=== PATIENT | male | born 1940 | race Caucasian/White ===

== ENCOUNTER → 2016-03-18 | Day surgery (SDC) | payer MEDICARE, OTHER ==
[~2016-03-18] MED LIST: ACETAMINOPHEN 1000 MG/100 ML VIAL IV ONE; AMBI10TA PO; BUPIVACAINE/EPINEPHRINE 0.25% PF 30 ML VIAL ONE; CALC500 PO; CEPH500 PO; ECOT81TA2 PO; FOLI1TAB PO; KETOROLAC TROMETHAMINE 30 MG/ML (IVP) VIAL IV PUSH ONE; LACTATED RINGER'S 1000 ML INJ 1,000 ML ONE; LIDOCAINE 1%/EPINEPHrine 1:100,000 SOLN 20 ML VIAL ONE; LISI10TA PO; MIDAZOLAM HCL 2 MG/2 ML VIAL ONE; ONDANSETRON HCL 4 MG/2 ML VIAL IV PUSH ONE; PRAV40TA PO; PROPOFOL 100 MG/10 ML INJ IV ONE; SODIUM CHLOR 0.9% 250 ML BAG IV ONE; SODIUM CHLOR 0.9% 250 ML INJ 250 ML IV ONE; TAB-TAB PO; TAMS0.4C67 PO; VANCOMYCIN HCL 1000 MG VIAL ONE; ceFAZolin INJ 1,000 MG VIAL ONE
--- NOTE | 2016-03-24 14:35 | MP ---
cc: MAYNOR GRECO MD, MICHAEL A. M.D. VAN DIEPEN, PATRICIA DATE OF PROCEDURE 03/18/2016 PROCEDURE Reduction and repair of incarcerated left inguinal hernia with mesh. PREOPERATIVE DIAGNOSIS Incarcerated, symptomatic left inguinal hernia. POSTOPERATIVE DIAGNOSIS Incarcerated, symptomatic left inguinal hernia. ANESTHESIA LMA. SURGEON MD Alcides ESTIMATED BLOOD LOSS Less than 20 mL. FLUIDS 850 mL crystalloid. THREAD SPINNER ADRIANA Traore NOTE The EPIC MANAGER was present from the beginning to the end of the case assisting in all portions of the procedure. It was necessary to have this individual in the room to assist in the above surgical procedure. The EPIC MANAGER's presence was necessary for appropriate retraction, dissection, visualization, and resection of important anatomical structures during the procedure. She was assisting through the entirety of the operation. PROCEDURE IN DETAIL The patient was seen in the holding area and the left side confirmed with the patient and marked by the undersigned. He was taken to the operating room and placed on the operating table in the supine position. After laryngeal mask anesthesia was instituted, the left groin was shaved, prepped and draped. Time-out was taken confirming the correct patient site and procedure to be performed. The left groin was infiltrated with local anesthetic and a slightly oblique incision was made directly over the mass. The hernia could not be reduced even after laryngeal mask anesthesia was instituted. Dissection was carried down to the external oblique fascia where further subfascial injections were made with local anesthetic. When this had been completed, the fascia was opened and dissection was carried back to the internal ring. The underlying structures were swept free from the external oblique fascia with care taken to identify the iliohypogastric nerve which was kept free from the operative field and left within its eagle coverings. The cord structures were brought up on a Dayne drain and the patient was noted to have a lipoma of the spermatic cord as well as significant intraabdominal preperitoneal fatty material within the cord structures. The fatty material as well as a small loop of bowel was able to be reduced into the abdominal cavity; the lipoma of the spermatic cord was easily dissected off and submitted to allow for closing down of the cord structures to minimize risk of recurrence. When this was completed, a 3 x 6-inch piece of Atrium mesh was brought up and transfixed to the pubic tubercle with a 2-0 Prolene suture. This was then run along the shelving edge of the inguinal ligament to complete the lateral edge of the repair. The mesh was then slit longitudinally and trimmed to size to fit the defect. The mesh was transfixed at multiple points with interrupted 2-0 Prolene suture. Care was taken to keep all sutures well away from the iliohypogastric nerve. With hemostasis assured, 30 mL of 0.25% Marcaine with epinephrine was injected into the transversalis fascia and subcutaneous tissues. The external oblique fascia was closed with a running 3-0 Vicryl suture. Care was taken to exclude the underlying tissues from the closure. The subcutaneous tissue was closed with interrupted 3-0 Vicryl suture and the skin closed with 5-0 PDS in a running subcuticular fashion. The wound was dressed with Telfa and Tegaderm and the patient was taken back to the recovery room in stable condition. Sponge, needle and instrument counts were reported to be correct. MD AYLEEN Khoury/RIZWANA /12:43 PM /2:26 PM
== END | disposition home or self-care (01) ==
LOC: ESDC 10:17
PROVIDERS: ATTEND Surgery Trauma Surgery
DX: K40.30 Unilateral inguinal hernia, with obstruction, without gangrene, not specified as recurrent (principal); D17.6 Benign lipomatous neoplasm of spermatic cord
CPT/HCPCS: 00830; 49507; 55520; 88304; C1781; J0131; J0690; J1885; J2250; J2405; J3010; J3370; J7050; J7120

== ENCOUNTER → 2017-08-09 | Outpatient (CLI) | payer MEDICARE, OTHER ==
--- NOTE | 2017-08-04 13:40 | MH ---
cc: Epi Solorzano MD DATE OF ADMISSION: 08/09/2017 ADMISSION DIAGNOSIS: Cataract, left eye. HISTORY OF PRESENT ILLNESS: This 77-year-old white male is coming through [facility] for the purpose of a lens extraction of the left eye with intraocular lens implant under local anesthesia. He has noticed decreasing visual acuity interfering with his daily activities and elected to have the above procedure. His best corrected visual acuity in room light is 20/50 in the right eye and 20/50 -1 in the left. PAST MEDICAL HISTORY: The patient has a history of hypertension, kidney stones, a leaky heart valve and cholesterol problems. PAST SURGICAL HISTORY: Kidney stones, left rotator cuff and back surgery in the past. DAILY MEDICATIONS: Include lisinopril, Pravachol, folic acid, Ambien, tramadol, potassium citrate, Ecotrin, multivitamins, amlodipine and hydrochlorothiazide. ALLERGIES: HE HAS NO KNOWN ALLERGIES. SOCIAL HISTORY: He is a 1/2-pack per day smoker for 30 years and drinks alcohol. FAMILY HISTORY: Noncontributory. REVIEW OF SYSTEMS: HEAD: Patient denies severe headaches, dizziness or recent head injury. EARS: Patient denies hearing loss, ear pain, discharge or ringing in the ears. NOSE: Patient denies nasal discharge, obstruction or frequent colds. MOUTH AND THROAT: Patient denies soreness of the mouth or tongue, bleeding gums, trouble swallowing, changes in voice or sore throat. NECK: Patient denies neck pain or swelling, limitation of neck movement or neck injury. CARDIOPULMONARY SYSTEM: Patient denies shortness of breath, orthopnea, chronic cough, sputum production, hemoptysis, chest pain, wheezing, palpitations or light-headedness. GI SYSTEM: Patient denies poor appetite, nausea, vomiting, abdominal pain, ulcers, hemorrhoids or change in bowel habits. SYSTEM: The patient denies urinary frequency, dysuria, change in urine color. NERVOUS SYSTEM: Patient denies convulsions, vertigo, stroke, numbness or weakness. PHYSICAL EXAMINATION: VITAL SIGNS: Blood pressure in our office was 146/88. This varies depending on which office he is and his state of mind. Pulse 72, respirations 16. HEENT: Head is normocephalic, atraumatic. Nose: Without rhinorrhea. Throat: Clear. NECK: Supple. HEART: Regular rhythm with occasional premature beat. ABDOMEN: Without tenderness. EXTREMITIES: Without edema. NEUROLOGIC: Within normal limits. MENTAL STATUS: Within normal limits. EYE EXAM: The patient's best corrected visual acuity in room light is 20/50 in the right eye and 20/50 -1 in the left. Visual abdul are full to confrontation testing. Extraocular muscle exam reveals full versions with orthophoric at distance and near. Pupils are 3 mm, equal, round, and reactive to light, without afferent defect. Anterior segment examination reveals an old foreign body scar on the cornea in the right eye greater than the left. There are nuclear sclerotic and anterior and posterior cortical cataract changes bilaterally. Intraocular pressure is 17 in the right eye and 19 in the left eye applanation tonometry. Dilated fundus exam revealed sharp disc with cup-to-disc ratio of 0.45 in the right eye and 0.25 in the left. The macula appears to be within normal limits. A posterior vitreous detachment is present bilaterally. 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 An atrophic pigmented area was noted superotemporally in the left eye. IMPRESSION: 1. Bilateral cataracts. 2. Posterior vitreous detachment both eyes. 3. Glaucoma suspect, low risk, both eyes. PLAN: Lens extraction of the left eye with intraocular lens implant under local anesthesia. The patient has been cleared medically. His blood pressure does vary and he was told, if the blood pressure is not reasonable, his case may have to be postponed. He has been counseled as to the risks, benefits and alternatives and elected to proceed. I feel that cataract surgery will improve the quality of life and activities of daily living in this patient. MD PETER Gonzalez/OUSMANE , 01:12 PM , 01:39 PM
[~2017-08-09] VITALS: Ht 172.7 cm; Wt 66.0 kg
[~2017-08-09] MED LIST changes: -ACETAMINOPHEN 1000 MG/100 ML VIAL IV ONE; +ACETYLCHOLINE CHL OPHT SOLN 1:100 2 ML VIAL ONE; +ASPI-147 PO; -BUPIVACAINE/EPINEPHRINE 0.25% PF 30 ML VIAL ONE; +CHLORHEXIDINE GLUCONATE 2 % 1 PACK (2 CLOTHS) TOPICAL PRN; +EPINEPHrine HCL PF/SF (1:1000) 1 MG/ML AMP I-OCULAR ONE; +HYALURONIDASE/LIDOCAINE/BUPIVACAINE 5 ML SYR LEFT EYE ONE; -KETOROLAC TROMETHAMINE 30 MG/ML (IVP) VIAL IV PUSH ONE; -LACTATED RINGER'S 1000 ML INJ 1,000 ML ONE; +LACTATED RINGER'S 1000 ML IV PRN; -LIDOCAINE 1%/EPINEPHrine 1:100,000 SOLN 20 ML VIAL ONE; +METOPROLOL TARTRATE 25 MG TAB PO PRN; -MIDAZOLAM HCL 2 MG/2 ML VIAL ONE; +MULTTAB67 PO; -ONDANSETRON HCL 4 MG/2 ML VIAL IV PUSH ONE; +PILOCARPINE HCL 2% OPHT SOLN 15 ML BTL ONE; +POVIDONE IODINE 5% (ANTISEPSIS KIT) 4 APPLICATIONS EACH NARE PRN; +PROPARACAINE HCL 0.5% OPHT SOLN 15 ML BTL LEFT EYE ONE; -PROPOFOL 100 MG/10 ML INJ IV ONE; +PROPOFOL 200 MG/20 ML AMP ONE; -SODIUM CHLOR 0.9% 250 ML BAG IV ONE; -SODIUM CHLOR 0.9% 250 ML INJ 250 ML IV ONE; +SODIUM CHLORID 0.9% 500 ML IV PRN; +TAMS5CAP PO; +TOBRAMYCIN/DEXAMETHASONE OPTH OINT 3.5 GM TUBE ONE; -VANCOMYCIN HCL 1000 MG VIAL ONE; +VISCOAT OPHT IRRIG SOLN 0.75 ML SYRINGE ONE; -ceFAZolin INJ 1,000 MG VIAL ONE
[2017-08-09 07:45] VITALS: PULSE 67
[2017-08-09] MEDS: TROPICAMIDE 1% OPHT SOLN 15 ML BTL LEFT EYE SCH ×4 (07:45→07:54)
[2017-08-09] MEDS: DICLOFENAC SOD 0.1% OPHT SOLN 2.5 ML BTL LEFT EYE SCH ×4 (07:45→07:54)
[2017-08-09] MEDS: PHENYLEPHRINE HCL 2.5% OPTH SOLN 2 ML BTL LEFT EYE SCH ×4 (07:45→07:54)
[2017-08-09] MEDS: CYCLOPENTOLATE HCL 1% OPHT SOLN 2 ML BTL LEFT EYE SCH ×4 (07:45→07:54)
[2017-08-09] MEDS: GATIFLOXACIN 0.5% OPHT SOLN 2.5 ML BTL LEFT EYE SCH ×4 (07:45→07:54)
[2017-08-09 08:10] VITALS: PULSE 74
--- NOTE | 2017-08-09 10:20 | MP ---
cc: Epi Solorzano MD DATE OF OPERATION: 08/09/2017 DATE OF OPERATION: 08/09/2017. T PREOPERATIVE DIAGNOSIS: Cataract left eye. POSTOPERATIVE DIAGNOSIS: Cataract left eye. OPERATION: Extracapsular cataract extraction with posterior chamber intraocular lens implant by phacoemulsification, left eye. SURGEON: Epi Solorzano M.D. ANESTHESIA: Local. COMPLICATIONS: None. INDICATIONS: See history and physical previously dictated. OPERATIVE PROCEDURE: The patient had adequate retrobulbar and eyelid blocks administered in the holding area and was brought to the operating room. The left eye was prepped and draped in the usual sterile ophthalmic manner. A lid speculum was inserted in the left eye. A 4-0 silk bridle suture was placed through the conjunctiva near the superior rectus muscle and it was tagged to the drape. A fornix-based conjunctival flap was prepared spanning approximately 5 mm in width. Hemostasis was obtained with wet-field cautery. A 3.5 mm groove was made 1 mm from the limbus and dissected up to the limbus in the form of a scleral pocket incision. A stab incision was then made at the 2 o'clock position. Viscoelastic was injected into the anterior chamber. The anterior chamber was entered with a 2.75 mm keratome through the scleral pocket incision. A 360 degree continuous curvilinear capsulorrhexis was then performed. Hydrodissection was utilized to divide the nucleus into inner and outer components and to separate the cortex from the capsule. Phacoemulsification was then utilized to remove the nucleus. The outer nuclear layer was removed with irrigation and aspiration and short bursts of ultrasound as necessary. The cortex was removed with the irrigation/aspiration handpiece. The posterior capsule was polished with the capsule polisher. Viscoelastic was injected into the capsular bag. The intraocular lens was inspected and found to be in good condition. The lens utilized was an Juan David, model number [id number] with a power of +17.5 Diopters. The lens was inserted into the capsular bag. The viscoelastic in the anterior chamber was then removed with the irrigation-aspiration handpiece. Viscoelastic was also removed from beneath the intraocular lens. The anterior chamber was filled with Miochol-E through the stab incision and pressurized. The wound was checked for leaks at this pressure and normalized pressure and there were none. The 4-0 bridle suture was removed. The conjunctival flap was brought down over the wound and secured with cautery. Pilocarpine 2% eye drops were instilled topically. The lid speculum was removed. TobraDex ophthalmic ointment was applied. The eye was double patched and shielded. The patient tolerated the procedure well and left the Operating Room in satisfactory condition. MD PETER Gonzalez/OUSMANE , 10:06 AM , 10:19 AM
[2017-08-09 10:25] VITALS: BP 158/74; PULSE 56; RESP 16; TEMP 98.2; O2SAT 100
== END ==
LOC: PHSDC 06:53
PROVIDERS: ATTEND Ophthalmology
DX: H25.812 Combined forms of age-related cataract, left eye (principal); H43.813 Vitreous degeneration, bilateral; H40.003 Preglaucoma, unspecified, bilateral; I10 Essential (primary) hypertension; I38 Endocarditis, valve unspecified; F17.210 Nicotine dependence, cigarettes, uncomplicated; Z87.442 Personal history of urinary calculi
CPT/HCPCS: 00142; 66984; J0171; J7040; V2632

== ENCOUNTER 2018-04-22 20:57 | Inpatient (IN) ==
[2018-04-22] MEDS ORDERED: Sod Chloride 0.9% Inj 1,000 ML IV.SIG SCH (21:30)
--- NOTE | 2018-04-22 21:34 | ED ---
HPI General Chief complaint: Fall Stated complaint: Fall Time Seen by Provider: 04/22/18 21:10 Source: patient, family (Brother) and EMS Mode of arrival: EMS Limitations: no limitations History of Present Illness HPI narrative: 77-year-old male here by ambulance from home for evaluation of left shoulder pain, left elbow pain, head injury after an unwitnessed fall. The patient does not recall how he fell. He does admit to drinking alcohol this evening and his brother who is here with him believes he may have drank a little bit too much. Patient drinks 2 scotch drinks daily. He was at home with his this evening when the incident occurred. On arrival the patient is tearful and apologetic. Initially he denies any symptoms or injury, however while talking to him he complains that his left shoulder and left elbow do hurt and are worse with movements and palpation. He has ecchymosis to his left eyelid as well as a superficial abrasion superior and lateral to the left eyelid without active bleeding. He denies head or neck pain. No back pain. No pain in any other joint or extremity. No abdominal pain. No chest pain or dyspnea. He reports history of mitral regurgitation, however denies history of CAD or any other significant cardiac disease. No history of syncopal episodes. Related Data Home Medications Medication Instructions Recorded Confirmed multivitamin [Multiple Vitamins] 1 tab PO QAM 08/25/17 04/22/18 amlodipine 5 mg PO BID 04/22/18 04/22/18 aspirin [Ecotrin] 325 mg PO DAILY 04/22/18 04/22/18 folic acid 1 mg PO DAILY 04/22/18 04/22/18 hydrochlorothiazide 12.5 mg PO DAILY 04/22/18 04/22/18 lisinopril-hydrochlorothiazide 1 tab PO BID 04/22/18 04/22/18 potassium citrate 10 meq PO DAILY 04/22/18 04/22/18 pravastatin [Pravachol] 40 mg PO DAILY 04/22/18 04/22/18 Allergies Allergy/AdvReac Type Severity Reaction Status Date / Time No Known Allergies Allergy Verified 04/22/18 21:34 Review of Systems ROS: all other systems reviewed are negative [facility] Social History Social History Substance History: No History of Abuse Second Hand Smoke Exposure: Yes Smoking Status: Never smoker How Often Do You Have a Drink Containing Alcohol: 2 to 3 times a week Recent Travel in [facility] within the Last 8 Weeks: No Recent Out of Country Travel within the Last 8 Weeks: No Exam Narrative Exam Narrative: GENERAL: Well-developed, well-nourished, awake, pleasant, cooperative, appears intoxicated, no apparent distress. SKIN: Focused skin assessment warm/dry. Left periorbital ecchymosis with superficial abrasion/skin tear to left forehead. HEAD: Skin exam as above. Normocephalic. No craniofacial step-off. EYES: Pupils equal and round. No scleral icterus. No injection or drainage. ENT: No nasal bleeding or discharge. Mucous membranes pink and moist. NECK: Trachea midline. No JVD. No midline vertebral step-off or tenderness. CARDIOVASCULAR: Regular rate and rhythm. Distal pulses brisk and equal bilaterally. RESPIRATORY: No accessory muscle use. Clear to auscultation. Breath sounds equal bilaterally. GASTROINTESTINAL: Abdomen soft, non-tender, nondistended. MUSCULOSKELETAL: Limited range of motion in left shoulder and left elbow secondary to perceived pain. There is no obvious deformity. There is mild diffuse tenderness to the left shoulder, left humerus, and left elbow. There is normal range of passive motion at all of these joints, and the left upper extremity is neurovascularly intact with all compartments supple. The rest of his joints and extremities are without deformity, without tenderness, with normal range of motion. NEUROLOGICAL: Awake and alert. No obvious cranial nerve deficits. Motor grossly within normal limits. Normal speech. PSYCHIATRIC: Calm, cooperative, appears intoxicated. Course Initial Documented Vital Signs Temperature 98.4 F 04/22/18 21:00 Pulse Rate 60 04/22/18 21:00 Respiratory Rate 16 04/22/18 21:00 Blood Pressure 106/60 04/22/18 21:00 Pulse Oximetry 99 04/22/18 21:00 Last Documented Vital Signs Temperature 98.4 F 04/22/18 21:15 Pulse Rate 65 04/22/18 22:32 Respiratory Rate 18 04/22/18 22:32 Blood Pressure 115/73 04/22/18 22:32 Pulse Oximetry 100 04/22/18 22:32 Critical Care Time Critical Care Time: Yes Total Critical Care Time: 40 Attestation: Aggregate critical care time was 40 minutes. Time to perform other separately billable procedures was not included in the critical care time. My time did not include minutes spent treating any other patients simultaneously or on activities that did not directly contribute to the patient's treatment. The services I provided to this patient were to treat and/or prevent clinically significant deterioration that could result in: , permanent disability, worsening clinical condition I provided critical care services requiring my management, as noted below: Chart data review, documentation time, medication orders and management, vital sign assessments/reviewing monitor data, ordering and reviewing lab tests, ordering and interpreting/reviewing x-rays and diagnostic studies, care of the patient and discussion of the patient with the admitting physicians. Medical Decision Making MDM Narrative Medical decision making narrative: Vital signs reviewed. Basic labs reviewed. Alcohol level is 194. Left humerus x-ray shows a left proximal humerus fracture with mild impaction. Left forearm x-ray is negative for fracture or dislocation. CT head: CONCLUSION:1. 6 mm left anterior frontal mid convexity subdural hematoma.2. Fluid in the left maxillary sinus. CT cervical spine: CONCLUSION:1. Anterior fixation at C3-5. Fixation hardware appear intact.2. Stable mild compression deformity of C6 superior endplate.3. 3 mm anterolisthesis of C5 on C6, presumably secondary to degenerative facet arthrosis. Flexion and extension views may be obtained if there is significant concern regarding ligamentous instability at this level.4. No acute fracture.5. Degenerative spondylosis of the cervical spine, as above. The patient and the patient's brother were made aware of all findings. Patient was placed in a left arm sling. The patient is awake and has been for the entire emergency department visit. He does have external signs of left forehead trauma. He has been slightly repetitive with questioning in the emergency department, however his alcohol level is 194. He denies headache. His main complaint if of left shoulder pain. He is on Ecotrin. No other antiplatelets or anticoagulants. 10:55 PM: I discussed the case with on-call neurosurgeon Dr. Crockett. He would like the patient to receive a loading dose of Keppra and to be admitted to the demolition crane operator service at the [facility] and [facility]. He will see the patient in consultation. Case discussed with demolition crane operator Dr. Serrano who will admit the patient to her service to the ICU at the [facility] in [facility]. Medical Screen Exam Complete: Yes Emergency Medical Condition: Yes Differential Diagnosis Differential Diagnosis: Alcohol intoxication, intracranial trauma, cervical spine injury, metabolic abnormality, dysrhythmia, left arm injury Lab Data Result diagrams: 04/22/18 21:20 04/22/18 21:20 Lab Results 04/22/18 04/22/18 04/22/18 Range/Units 21:20 21:20 21:20 CBC w Diff Auto diff final WBC 8.3 (4.0-11.0) th/mm3 RBC 4.13 L (4.50-5.90) mil/mm3 Hgb 14.3 (13.0-17.0) gm/dL Hct 42.8 (39.0-51.0) % MCV 103.7 H (80.0-100.0) fL MCH 34.6 H (27.0-34.0) pg MCHC 33.3 (32.0-36.0) % RDW 11.9 (11.6-17.2) % Plt Count 230 (150-450) th/mm3 MPV 7.7 (7.0-11.0) fL Neut % (Auto) 58.9 (16.0-70.0) % Lymph % (Auto) 32.8 (9.0-44.0) % Morgan % (Auto) 7.2 (0.0-8.0) % Eos % (Auto) 0.6 (0.0-4.0) % Baso % (Auto) 0.5 (0.0-2.0) % Neut # (Auto) 4.9 (1.8-7.7) th/mm3 Lymph # (Auto) 2.7 (1.0-4.8) th/mm3 Morgan # (Auto) 0.6 (0.0-0.9) th/mm3 Eos # (Auto) 0.1 (0.0-0.4) th/mm3 Baso # (Auto) 0.0 (0.0-0.2) th/mm3 WBC Differential . Differential Comment . PT 10.4 (9.8-11.6) sec INR 1.0 Ratio APTT 22.6 L (23.4-31.7) sec Sodium 139 (136-145) meq/L Potassium 3.6 (3.5-5.1) meq/L Chloride 103 (98-107) meq/L Carbon Dioxide 24.1 (21.0-32.0) meq/L Anion Gap 12 (5-15) meq/L BUN 23 H (7-18) mg/dL Creatinine 0.97 (0.60-1.30) mg/dL Estimated GFR 75 L (>89) mL/min Random Glucose 122 H (74-106) mg/dL Calcium 8.8 (8.5-10.1) mg/dL Magnesium 2.2 (1.5-2.5) mg/dL Total Bilirubin 0.5 (0.2-1.0) mg/dL AST 21 (15-37) U/L ALT 24 (12-78) U/L Alkaline Phosphatase 80 (45-117) U/L Total Protein 7.0 (6.4-8.2) g/dL Albumin 3.9 (3.4-5.0) g/dL Lipase 113 (73-393) U/L Serum Alcohol 194 H (0-5) mg/dL Imaging Data Radiologist's impression: Cervical Spine CT 04/22/18 21:16 CONCLUSION: 1. Anterior fixation at C3-5. Fixation hardware appear intact. 2. Stable mild compression deformity of C6 superior endplate. 3. 3 mm anterolisthesis of C5 on C6, presumably secondary to degenerative facet arthrosis. Flexion and extension views may be obtained if there is significant concern regarding ligamentous instability at this level. 4. No acute fracture. 5. Degenerative spondylosis of the cervical spine, as above. Forearm X-Ray 04/22/18 21:16 CONCLUSION: 1. No acute fracture. Head CT 04/22/18 21:16 CONCLUSION: 1. 6 mm left anterior frontal mid convexity subdural hematoma. 2. Fluid in the left maxillary sinus. Humerus X-Ray 04/22/18 21:16 CONCLUSION: Left proximal humeral fracture. Discharge Plan Discharge Disposition Patient Disposition: ED Admit(ED Internal Use Only) Discharge Condition Condition: Fair Discharge Details Diagnosis: Acute subdural hematoma, Closed fracture of left proximal humerus, Alcohol intoxication Physicians Team ED Provider: Fermin Shukla Primary Care Provider: Gabi Mosquera Rxs /Orders / Referrals /Forms Prescriptions: No Action multivitamin [Multiple Vitamins] Tablet 1 tab PO QAM RF: 0 lisinopril-hydrochlorothiazide 20-12.5 mg Tablet 1 tab PO BID RF: 0 pravastatin [Pravachol] 40 mg Tablet 40 mg PO DAILY RF: 0 amlodipine 5 mg Tablet 5 mg PO BID RF: 0 aspirin [Ecotrin] 325 mg Tablet,Delayed Release (Dr/Ec) 325 mg PO DAILY RF: 0 potassium citrate 10 mEq (1,080 mg) Tablet Extended Release 10 meq PO DAILY RF: 0 folic acid 1 mg Tablet 1 mg PO DAILY RF: 0 hydrochlorothiazide 12.5 mg Tablet 12.5 mg PO DAILY RF: 0 Status ED Status: With Doctor
[2018-04-22 21:36] LABS: Baso % (Auto) 0.5 % (0.0-2.0); Eos # (Auto) 0.1 th/mm3 (0.0-0.4); Eos % (Auto) 0.6 % (0.0-4.0); Hematocrit 42.8 % (39.0-51.0); Hemoglobin 14.3 gm/dL (13.0-17.0); Lymph # (Auto) 2.7 th/mm3 (1.0-4.8); Lymph % (Auto) 32.8 % (9.0-44.0); Mean Corpuscular HGB Conc 33.3 % (32.0-36.0); Mean Corpuscular Hemoglobin 34.6 pg (27.0-34.0); Mean Corpuscular Volume 103.7 fL (80.0-100.0); Mean Platelet Volume 7.7 fL (7.0-11.0); Mono # (Auto) 0.6 th/mm3 (0.0-0.9); Mono % (Auto) 7.2 % (0.0-8.0); Neut # (Auto) 4.9 th/mm3 (1.8-7.7); Neut % (Auto) 58.9 % (16.0-70.0); Platelet Count 230 th/mm3 (150-450); Red Blood Count 4.13 mil/mm3 (4.50-5.90); Red Cell Distribution Width 11.9 % (11.6-17.2); White Blood Count 8.3 th/mm3 (4.0-11.0)
[2018-04-22 21:43] LABS: Chloride 103 meq/L (98-107); Potassium 3.6 meq/L (3.5-5.1); Sodium 139 meq/L (136-145)
[2018-04-22 21:48] LABS: Albumin 3.9 g/dL (3.4-5.0); Anion Gap 12 meq/L (5-15); Blood Urea Nitrogen 23 mg/dL (7-18); Calcium 8.8 mg/dL (8.5-10.1); Carbon Dioxide 24.1 meq/L (21.0-32.0); Glucose,Random 122 mg/dL (74-106); Lipase 113 U/L (73-393); Magnesium 2.2 mg/dL (1.5-2.5)
[2018-04-22 21:51] LABS: Alanine Aminotransferase 24 U/L (12-78); Aspartate Aminotransferase 21 U/L (15-37); Glomerular Filtration Rate 75 mL/min (>89)
[2018-04-22 21:54] LABS: Alkaline Phosphatase 80 U/L (45-117)
--- NOTE | 2018-04-22 21:54 | XR ---
EXAM DATE: 04/22/2018 9:51 PM EST AGE/SEX: 77 years / Male INDICATIONS: Pain in left forearm post injury. CLINICAL DATA: This is the patient's initial encounter. Patient reports that signs and symptoms have been present for 1 day and indicates a pain score of 10/10. MEDICAL/SURGICAL HISTORY: None. None. COMPARISON: [facility], HUMERUS LEFT MIN 2V, 04/22/2018. . FINDINGS: Bony structures are intact and in normal alignment. Osseous density is normal. Soft tissues are unre markable. No radiopaque foreign bodies seen. CONCLUSION: 1. No acute fracture. Electronically signed by: Saleem Black MD Board Certified Radiologist 04/22/2018 9:52 PM EST
--- NOTE | 2018-04-22 21:57 | XR ---
EXAM DATE: 04/22/2018 9:54 PM EST AGE/SEX: 77 years / Male INDICATIONS: Pain in left arm post injury. CLINICAL DATA: This is the patient's initial encounter. Patient reports that signs and symptoms have been present for 1 day and indicates a pain score of 10/10. MEDICAL/SURGICAL HISTORY: None. None. COMPARISON: No prior exams available for comparison. FINDINGS: Bony structures are osteopenic. There is a fracture of the proximal humerus underneath the surgical neck with slight impaction of the metaphysis into humeral head. CONCLUSION: Left proximal humeral fracture. Electronically signed by: Shruthi Mobley MD Board Certified Radiologist 04/22/2018 9:55 PM EST
[2018-04-22 22:03] LABS: Alcohol 194 mg/dL (0-5)
[2018-04-22] MEDS ORDERED: Morphine Inj 4 MG/ML Vial IV.PUSH ONE (22:06)
[2018-04-22 22:11] LABS: Activated Partial Thrombo Time 22.6 sec (23.4-31.7); Prothrombin Time 10.4 sec (9.8-11.6)
--- NOTE | 2018-04-22 22:13 | CT ---
EXAM DATE: 04/22/2018 10:07 PM EST AGE/SEX: 77 years / Male INDICATIONS: Fall. Head and neck pain. CLINICAL DATA: This is the patient's initial encounter. Patient reports that signs and symptoms have been present for 1 day and indicates a pain score of 7/10. MEDICAL/SURGICAL HISTORY: Hypertension. Renal calculi. Fusion, cervical. RADIATION DOSE: 62.97 CTDI (mGy) COMPARISON: [facility] [place], CT BRAIN W/O CONTRAST, 12/27/2010. . TECHNIQUE: CT of the head without contrast. Using automated exposure control and adjustment of the mA and/or kV according to patient size, radiation dose was kept as low as reasonably achievable to ob tain optimal diagnostic quality images. DICOM format image data is available electronically for revi ew and comparison. FINDINGS: Cerebrum: There is a 6 mm left anterior frontal mid convexity subdural hematoma. No significant asso ciated mass effect. No midline shift. Ventricles are normal in size. Daniels-white matter differentiatio n is maintained. Posterior Fossa: The cerebellum and brainstem are intact. The 4th ventricle is midline. The cerebe llopontine angle is unremarkable. Extracranial: The visualized portion of the orbits is intact. Fluid noted in the left maxillary sinu s. Left supraorbital soft tissue hematoma. Skull: The calvaria is intact. No evidence of skull fracture. CONCLUSION: 1. 6 mm left anterior frontal mid convexity subdural hematoma. 2. Fluid in the left maxillary sinus. Electronically signed by: Saleem Black MD Board Certified Radiologist 04/22/2018 10:12 PM KARISHMA Malloy
--- NOTE | 2018-04-22 22:26 | CT ---
EXAM DATE: 04/22/2018 10:19 PM EST AGE/SEX: 77 years / Male INDICATIONS: Fall. Head and neck pain. CLINICAL DATA: This is the patient's initial encounter. Patient reports that signs and symptoms have been present for 1 day and indicates a pain score of 6/10. MEDICAL/SURGICAL HISTORY: Renal calculi. Hypertension. Fusion, cervical. RADIATION DOSE: 28.18 CTDI (mGy) COMPARISON: [facility] [place] [facility]), 12/27/2010. . TECHNIQUE: Contiguous axial images were obtained using helical multirow detector technique. The vol umetric data was post-processed with multiplanar reconstruction in oblique axial, sagittal, and coron al planes. Using automated exposure control and adjustment of the mA and/or kV according to patient s ize, radiation dose was kept as low as reasonably achievable to obtain optimal diagnostic quality elizabeth ges. DICOM format image data is available electronically for review and comparison. FINDINGS: OSSEOUS STRUCTURES: Postsurgical features of anterior plate and screw and intradiscal fixation at C3- 5. Hardware appears intact. Mild compression deformity of the C6 superior endplate. This appears unch anged from remote prior exam. Osseous structures are intact without evidence for acute bony fracture. Dens is intact. ALIGNMENT: 3 mm anterolisthesis of C5 on C6. Sagittal alignment is otherwise maintained. There is a n ormal C1-2 relationship. Facets are normally aligned. SOFT TISSUES: There is no significant prevertebral soft tissue hematoma. No significant cervical sakshi nopathy or gross mass. The thyroid appears unremarkable. Visualized lung apices are clear without pn eumothorax. ADDITIONAL FINDINGS: Multilevel degenerative spondylosis most notably at C5-6. Bony central canal is patent. Moderate bony neural foraminal narrowing bilaterally at C3-4 and C5-6. CONCLUSION: 1. Anterior fixation at C3-5. Fixation hardware appear intact. 2. Stable mild compression deformity of C6 superior endplate. 3. 3 mm anterolisthesis of C5 on C6, presumably secondary to degenerative facet arthrosis. Flexion a nd extension views may be obtained if there is significant concern regarding ligamentous instability at this level. 4. No acute fracture. 5. Degenerative spondylosis of the cervical spine, as above. Electronically signed by: Saleem Black MD Board Certified Radiologist 04/22/2018 10:25 PM KARISHMA Malloy
[2018-04-22] MEDS ORDERED: levETIRAcetam 1000mg/100mL Inj 100 ML IV.SIG ONE (22:57)
[2018-04-23] MEDS ORDERED: Magnesium Sulfate Inj 4 GM in Sodium Chlor 0.9% Inj 92 ML IV.SIG PRN (01:40)
[2018-04-23] MEDS ORDERED: Magnesium Sulfate Inj 2 GM in Sodium Chlor 0.9% Inj 96 ML IV.SIG PRN (01:40)
[2018-04-23] MEDS ORDERED: Potassium Chlor 40 mEq Premix 40 MEQ/100 ML PIGGYBACK IV.SIG PRN ×2 (01:40)
[2018-04-23] MEDS ORDERED: Magnesium Oxide 400 MG Tablet PO PRN (01:40)
[2018-04-23] MEDS ORDERED: Potassium Chlor 20 mEq Premix 20 MEQ/100 ML PIGGYBACK IV.SIG PRN ×2 (01:40)
[2018-04-23] MEDS ORDERED: Sodium Phosphate Inj 30 MMOL in Sodium Chlor 0.9% Inj 250 ML IV.SIG PRN (01:40)
[2018-04-23] MEDS ORDERED: Bisacodyl 10 MG Supp RECTAL PRN (01:40)
[2018-04-23] MEDS ORDERED: Potassium Phosphate 500 MG Soluble Tablet PO PRN ×2 (01:40)
[2018-04-23] MEDS ORDERED: Acetaminophen 325 MG Tablet PO PRN (01:40)
[2018-04-23] MEDS ORDERED: Potassium Phosphate Inj 30 MMOL in Sodium Chlor 0.9% Inj 250 ML IV.SIG PRN (01:40)
[2018-04-23] MEDS ORDERED: Potassium Chloride Liq 20 MEQ/15 ML UDC PO PRN ×2 (01:40)
[2018-04-23] MEDS ORDERED: Sod Chloride 0.9% Inj 1,000 ML IV.SIG ONE ×2 (01:44→01:48)
[2018-04-23] MEDS ORDERED: fentaNYL Citrate Inj 100 MCG/2 ML Ampul IV.PUSH ONE (01:47)
--- NOTE | 2018-04-23 02:09 | P.HPCC ---
History of Present Illness Service: [facility] Primary Care Physician: Gabi Mosquera MD Chief Complaint: Left arm pain History of Present Illness: 77yM transferred from [facility] for subdural hematoma, left humerus fracture, and alcohol intoxication. The patient states "I have no idea what happened, I guess I fell". He admits to drinking "too much Scotch tonight" and thinks he fell. He was initially seen in the [facility] and was found to have a small left frontal subdural hematoma, a left proximal humerus fracture, and an alcohol level of almost 200. He was transferred to the [facility] for surgical critical care admission and neurosurgery consultation. The patient admits to taking a baby aspirin daily but does not use any other anticoagulants or antiplatelets. He currently only complains of left arm and hand pain ("aching", constant, worse with any movement, severe). He arrived to [facility] hypotensive (70s/50s) which improved with crystalloid bolus. Family history non-contributory. - Diagnosis (1) Hypotension (2) Multiple contusions (3) Acute subdural hematoma (4) Closed fracture of left proximal humerus (5) Alcohol intoxication Inpatient Certification: I certify that the inpatient services were ordered in accordance with Medicare regulations governing the order. This includes certification that hospital inpatient services are reasonable and necessary and in the case of services not specified as inpatient-only under 42 CFR 419.22(n), that they are appropriately provided as inpatient services in accordance to with the 2-midnight benchmark under 43 CFR 412.3(e) Estimated Total Length of Stay (Days): 3 Plans for Post Hospital Care: Not yet determined Review of Systems All other systems reviewed negative except as stated in HPI Constitutional: Denies fever(s) Eyes: Denies loss of vision Ears, Nose, Mouth, and Throat: Denies headache(s) Cardiovascular: Denies chest pain Respiratory: Denies cough Gastrointestinal: Denies abdominal pain Musculoskeletal: Denies back pain Skin/Breast: Reports wounds Neurologic: Denies confusion Psychiatric: Denies confusion [facility] - History History Provided By: Patient, Family Member - Medical History Medical History: Medical History (Last Reviewed 04/23/18 @ 01:59 by Marisol Serrano DO) H/O nephrolithotomy with removal of calculi (Acute) Elevated cholesterol (Acute) Mitral regurgitation (Acute) Kidney stones (Acute) Hypertension (Acute) - Surgical History Surgical History: Surgical History (Last Reviewed 04/23/18 @ 01:59 by Marisol Serrano DO) Hx of inguinal hernia repair (Acute) History of phacoemulsification of cataract of left eye with intraocular lens implantation (Acute) History of back surgery (Acute) H/O repair of left rotator cuff (Acute) - Social History I have reviewed the patient's Social History: Yes - Tobacco History Second Hand Smoke Exposure: Yes Smoking Status: Never smoker - Alcohol History How Often Do You Have a Drink Containing Alcohol: 2 to 3 times a week - Substance Use History Substance History: No History of Abuse - Travel History Recent Travel in the [place] Within the Last 8 Weeks: No Recent Travel Out of the Country Within the Last 8 Weeks: No - Immunization History Tetanus Immunization: Unsure Medications and Allergies Active Medications: Active Medications Acetaminophen (Tylenol) 650 mg PO Q6H PRN PRN Reason: PAIN 1-10 AND/OR FEVER >101F Al Hydroxide/Mg Hydroxide (Milk Of Steve Liq) 30 ml PO Q12H PRN PRN Reason: Mild Constipation Albuterol (Duoneb Neb (Prn)) 1 ampul NEB Q2HR NEB PRN PRN Reason: WHEEZING Bisacodyl (Dulcolax Supp) 10 mg RECTAL DAILY PRN PRN Reason: SEVERE CONSITIPATION Chlorhexidine Gluconate (Chlorhexidine 2% Cloth) 3 pack TOPICAL DAILY@0400 MARV Stop: 04/28/18 03:59 Chlorhexidine Gluconate (Chlorhexidine 2% Cloth) 3 pack TOPICAL DAILY@0400 PRN PRN Reason: Extra cloth needed Stop: 04/28/18 03:59 Famotidine (Pepcid) 20 mg PO BID MARV Famotidine (Pepcid Pf Inj) 20 mg IV.PUSH Q12HR MARV Fentanyl Citrate (Fentanyl Inj) 25 mcg IV.PUSH ONCE ONE Stop: 04/23/18 01:48 Magnesium Sulfate 4 gm/ Sodium (Chloride) 100 mls @ 50 mls/hr IV.SIG UNSCH PRN PRN Reason: For Magnesium 0.9 - 1.1 mg/dL Sodium Chloride (Ns Inj) 1,000 mls @ 100 mls/hr IV.CONT .Q10H MARV Potassium Chloride (Kcl 40 Meq Premix Inj) 40 meq in 100 mls @ 25 mls/hr IV.SIG Q2H PRN PRN Reason: For Potassium 2.8 - 3.2 mEq/L Potassium Chloride (Kcl 20 Meq Premix Inj) 20 meq in 100 mls @ 50 mls/hr IV.SIG Q2H PRN PRN Reason: For Potassium 3.3 - 3.5 mEq/L Potassium Chloride (Kcl 40 Meq Premix Inj) 40 meq in 100 mls @ 25 mls/hr IV.SIG UNSCH PRN PRN Reason: For Potassium 3.3 - 3.5 mEq/L Potassium Chloride (Kcl 20 Meq Premix Inj) 20 meq in 100 mls @ 50 mls/hr IV.SIG Q2H PRN PRN Reason: For Potassium 2.8 - 3.2 mEq/L Potassium Phosphate 30 mmol/ (Sodium Chloride) 260 mls @ 42 mls/hr IV.SIG UNSCH PRN PRN Reason: SEE LABEL COMMENTS Sodium Phosphate 30 mmol/ (Sodium Chloride) 260 mls @ 42 mls/hr IV.SIG UNSCH PRN PRN Reason: For Phosphorus < 2.5 mg/dL Magnesium Sulfate 2 gm/ Sodium (Chloride) 100 mls @ 50 mls/hr IV.SIG UNSCH PRN PRN Reason: For Magnesium 1.2 - 1.6 mg/dL Sodium Chloride (Ns Inj) 1,000 mls @ 0 mls/hr IV.SIG BOLUS ONE Stop: 04/23/18 01:45 Thiamine HCl 100 mg/ Sodium (Chloride) 101 mls @ 100 mls/hr IV.SIG DAILY MARV Sodium Chloride (Ns Inj) 1,000 mls @ 0 mls/hr IV.SIG BOLUS ONE Stop: 04/23/18 01:49 Lactulose (Lactulose Liq) 30 ml PO DAILY PRN PRN Reason: SEVERE CONSITIPATION Levetiracetam (Keppra) 500 mg PO BID MARV Magnesium Oxide (Mag-Ox) 800 mg PO UNSCH PRN PRN Reason: For Magnesium 1.2 - 1.6 mg/dL Ondansetron HCl (Zofran Inj) 4 mg IV.PUSH Q6H PRN PRN Reason: NAUSEA OR VOMITING Potassium Chloride (Kcl Liq) 40 meq PO UNSCH PRN PRN Reason: POTASSIUM LESS THAN 3.5 Potassium Chloride (Kcl Liq) 40 meq PO UNSCH PRN PRN Reason: Potassium level 3.3-3.5 mEq/L Potassium Phosphate (K-Phos Original) 2,000 mg PO Q4H PRN PRN Reason: Phosphorus Less Than 2.5 mg/dL Potassium Phosphate (K-Phos Original) 2,000 mg PO UNSCH PRN PRN Reason: SEE LABEL COMMENTS Pravastatin Sodium (Pravachol) 40 mg PO DAILY MARV Senna/Docusate Sodium (Yessenia-Colace) 1 tab PO BID MARV Sennosides (Senokot) 17.2 mg PO Q12H PRN PRN Reason: Moderate Constipation Sodium Chloride (Ns Flush) 2 ml IV.FLUSH PRN PRN PRN Reason: FLUSH AFTER USING IV ACCESS Sodium Chloride (Ns Flush) 2 ml IV.FLUSH BID MARV Sodium Chloride (Ns Flush) 2 ml IV.FLUSH PRN PRN PRN Reason: FLUSH AFTER USING IV ACCESS Allergies Allergy/AdvReac Type Severity Reaction Status Date / Time No Known Allergies Allergy Verified 04/22/18 21:34 Home Medications Medication Instructions Recorded Confirmed Type multivitamin [Multiple Vitamins] 1 tab PO QAM 08/25/17 04/22/18 History amlodipine 5 mg PO BID 04/22/18 04/22/18 History aspirin [Ecotrin] 325 mg PO DAILY 04/22/18 04/22/18 History folic acid 1 mg PO DAILY 04/22/18 04/22/18 History hydrochlorothiazide 12.5 mg PO DAILY 04/22/18 04/22/18 History lisinopril-hydrochlorothiazide 1 tab PO BID 04/22/18 04/22/18 History potassium citrate 10 meq PO DAILY 04/22/18 04/22/18 History pravastatin [Pravachol] 40 mg PO DAILY 04/22/18 04/22/18 History Results - Labs CBC & Chem 7: 04/22/18 21:20 04/22/18 21:20 Labs: Short CBC 04/22/18 Range/Units 21:20 WBC 8.3 (4.0-11.0) th/mm3 Hgb 14.3 (13.0-17.0) gm/dL Hct 42.8 (39.0-51.0) % Plt Count 230 (150-450) th/mm3 [facility] 04/22/18 21:20 Sodium 139 Potassium 3.6 Chloride 103 Carbon Dioxide 24.1 BUN 23 H Creatinine 0.97 Calcium 8.8 Liver Function 04/22/18 Range/Units 21:20 Total Bilirubin 0.5 (0.2-1.0) mg/dL AST 21 (15-37) U/L ALT 24 (12-78) U/L Alkaline Phosphatase 80 (45-117) U/L Albumin 3.9 (3.4-5.0) g/dL - Imaging Impressions Cervical Spine CT 04/22/18 21:16 CONCLUSION: 1. Anterior fixation at C3-5. Fixation hardware appear intact. 2. Stable mild compression deformity of C6 superior endplate. 3. 3 mm anterolisthesis of C5 on C6, presumably secondary to degenerative facet arthrosis. Flexion and extension views may be obtained if there is significant concern regarding ligamentous instability at this level. 4. No acute fracture. 5. Degenerative spondylosis of the cervical spine, as above. Forearm X-Ray 04/22/18 21:16 CONCLUSION: 1. No acute fracture. Head CT 04/22/18 21:16 CONCLUSION: 1. 6 mm left anterior frontal mid convexity subdural hematoma. 2. Fluid in the left maxillary sinus. Humerus X-Ray 04/22/18 21:16 CONCLUSION: Left proximal humeral fracture. Exam Vital signs: Vital Signs 04/22/18 21:00 04/22/18 21:15 04/22/18 22:32 Temperature 98.4 F 98.4 F Pulse Rate 60 62 65 Respiratory Rate 16 18 18 Blood Pressure 106/60 110/58 L 115/73 Pulse Oximetry 99 99 100 04/23/18 00:10 Temperature Pulse Rate 66 Respiratory Rate 18 Blood Pressure 100/53 L Pulse Oximetry Intake & Output 04/22/18 04/22/18 04/23/18 06:59 18:59 06:59 Intake Total 1100 / 1100 Balance 1100 / 1100 Weight 65.771 kg Intake: IV 1100 / 1100 NS Inj 1,000 ML @ 1000 mls/hr 1000 / 1000 IV.SIG BOLUS MARV Rx#:[id number] Keppra 1000 mg/100 mL Premix 100 / 100 100 ML @ 400 mls/hr IV.SIG ONCE ONE Rx#:[id number] Narrative: GEN: Elderly male lying in bed, no acute distress HEENT: Superficial abrasion to left lateral orbit with mild ecchymosis, PERRL, EOMI NECK: Trachea midline, no midline cervical spinal tenderness CARDIO: Regular rate and rhythm PULM: Clear to auscultation bilaterally ABD/GI: Soft and non-tender in all quadrants EXT/MSK: Left upper extremity is in sling, superficial abrasion to thenar eminence, strong radial pulse, account development representative strength intact SKIN: Warm and well-perfused NEURO: GCS 15, awake, alert, oriented x 3, motor strength 5/5 and sensation intact to all extremities, no focal neuro deficits PSYCH: Calm, no current agitation Caprini VTE Risk Assessment Caprini VTE Risk Assessment: Moderate/High Risk (score >= 2) VTE Pharmacological Exception Reason: Hemorrhage Caprini Risk Assessment Model: Point Value = 1 Point Value = 2 Point Value = 3 Point Value = 5 Age 41-60 Minor surgery BMI > 25 kg/m2 Swollen legs Varicose veins or History of unexplained or recurrent spontaneous Oral contraceptives or hormone replacement Sepsis (< 1 month) Serious lung disease, including pneumonia (< 1 month) Abnormal pulmonary function Acute myocardial infarction Congestive heart failure (< 1 month) History of inflammatory bowel disease Medical patient at bed rest Age 61-74 Arthroscopic surgery Major open surgery (> 45 min) Laparoscopic surgery (> 45 min) Malignancy Confined to bed (> 72 hours) Immobilizing plaster cast Central venous access Age >= 75 History of VTE Family history of VTE Factor V Leiden Prothrombin [id number] Lupus anticoagulant Anticardiolipin antibodies Elevated serum homocysteine Heparin-induced thrombocytopenia Other congenital or acquired thrombophilia Stroke (< 1 month) Elective arthroplasty Hip, pelvis, or leg fracture Acute spinal cord injury (< 1 month) Prophylaxis Regimen: Total Risk Factor Score Risk Level Prophylaxis Regimen 0-1 Low Early ambulation 2 Moderate Order ONE of the following: *Sequential Compression Device (SCD) *Heparin 5000 units SQ BID 3-4 Higher Order ONE of the following medications: *Heparin 5000 units SQ TID *Enoxaparin/Lovenox 40 mg SQ daily (WT < 150 kg, CrCl > 30 mL/min) *Enoxaparin/Lovenox 30 mg SQ daily (WT < 150 kg, CrCl > 10-29 mL/min) *Enoxaparin/Lovenox 30 mg SQ BID (WT < 150 kg, CrCl > 30 mL/min) AND/OR *Sequential Compression Device (SCD) 5 or more Highest Order ONE of the following medications: *Heparin 5000 units SQ TID (Preferred with Epidurals) *Enoxaparin/Lovenox 40 mg SQ daily (WT < 150 kg, CrCl > 30 mL/min) *Enoxaparin/Lovenox 30 mg SQ daily (WT < 150 kg, CrCl > 10-29 mL/min) *Enoxaparin/Lovenox 30 mg SQ BID (WT < 150 kg, CrCl > 30 mL/min) AND *Sequential Compression Device (SCD) Assessment and Plan - Problem List (1) Hypotension Code(s): I95.9 - Hypotension, unspecified Status: Acute (2) Multiple contusions Code(s): T07.XXXA - Unspecified multiple injuries, initial encounter Status: Acute (3) Acute subdural hematoma Code(s): S06.5X9A - Traumatic subdural hemorrhage with loss of consciousness of unspecified duration, initial encounter Status: Acute (4) Closed fracture of left proximal humerus Code(s): S42.202A - Unspecified fracture of upper end of left humerus, initial encounter for closed fracture Status: Acute (5) Alcohol intoxication Code(s): F10.929 - Alcohol use, unspecified with intoxication, unspecified Status: Acute - Assessment and Plan Plan: 77yM presenting with alcohol intoxication, unwitnessed fall, subdural hematoma, left proximal humerus fracture NEURO: Acute subdural hematoma Alcohol intoxication -Case discussed with Dr. Crockett of neurosurgery prior to patient's arrival -Repeat CTH this morning -Avoid all anticoagulants/ antiplatelets until [place] by [facility] [place] -Jose R for seizure prophylaxis x 1 week total -Thiamine supplementation -Monitor for signs of alcohol withdrawal; would like to avoid benzos unless necessary to prevent clouding neuro exam -Pain control as BP tolerates CARDIO: Acute hypotension History of hypertension and dyslipidemia -Patient has no signs of bleeding; I suspect his hypotension is due to hypovolemia as he improved with bolus x 2 -Hold all home antihypertensives for now -Continue home dose of statin -Cardiac monitoring -Check AM labs PULM: -No active issues F/E/N: -NPO for now -IVF @ 100 mLs/hr after boluses -ICU electrolyte protocol MSK/SKIN: Left proximal humerus fracture Multiple contusions -Pain control -Sling/ swath and non-weight bearing to LUE -Ortho consult in AM -Local wound care; patient's last tetanus booster was approximately 5 years ago -PT eval PROPHY: -SCDs only, SQH contraindicated in the setting of subdural hematoma -PPI until tolerating PO OVERALL: This patient is critically ill and requires ICU level of care. He is at high risk for decompensation. Counseling/ Coordination of Care: This patient is critically ill with impairment of one or more vital organ systems with a high probability of imminent or life-threatening deterioration. High-complexity medical decision making was required to support vital organ function and/ or prevent deterioration of the patient's condition. Total critical care time spent is 50 minutes giving full attention to this patient. This includes examining the patient, gathering history from someone other than the patient (i.e. chart review), discussing the patient's care with other providers, managing the patient's blood pressure and ventilator settings, ordering and interpreting radiologic studies, ordering and interpreting laboratory values, managing the patient's sedation requirements, re-evaluation at frequent intervals, and documentation. Amount of time is separate from teaching, counseling the patient and/or family, and exclusive of procedures. Code Status: Full Discussed Condition With: Dr. Crockett (neurosurgery), Dr. Shukla (ED) (4) Closed fracture of left proximal humerus Qualifiers: Encounter type: initial encounter Fracture morphology: other fracture Fracture alignment: nondisplaced Qualified Code(s): S42.295A - Other nondisplaced fracture of upper end of left humerus, initial encounter for closed fracture (5) Alcohol intoxication Qualifiers: Complication of substance-induced condition: with unspecified complication Qualified Code(s): F10.929 - Alcohol use, unspecified with intoxication, unspecified
[2018-04-23] MEDS: Sod Chloride 0.9% Inj 1,000 ML IV.CONT SCH ×3 (02:47→23:32)
[2018-04-23] MEDS: Thiamine Inj 100 MG in Sodium Chlor 0.9% Inj 100 ML IV.SIG SCH ×2 (03:03→08:33)
[2018-04-23] MEDS ORDERED: Chlorhexidine Gluconate 2% 1 Pack (2 Cloths) TOPICAL PRN (04:00)
--- NOTE | 2018-04-23 04:47 | CT ---
EXAM DATE: 04/23/2018 4:35 AM EST AGE/SEX: 77 years / Male INDICATIONS: Intracerebral hemorrhage. CLINICAL DATA: This is the patient's subsequent encounter. Patient reports that signs and symptoms h ave been present for 1 day and indicates a pain score of 2/10. MEDICAL/SURGICAL HISTORY: Hypertension. Renal calculi. . Spinal fusion. RADIATION DOSE: 40.68 CTDI (mGy) COMPARISON: [facility], CT HEAD W/O CONTRAST, 04/22/2018. . TECHNIQUE: CT of the head without contrast. Using automated exposure control and adjustment of the mA and/or kV according to patient size, radiation dose was kept as low as reasonably achievable to ob tain optimal diagnostic quality images. DICOM format image data is available electronically for revi ew and comparison. FINDINGS: The small acute subdural hematoma on the left is stable. No new hemorrhage observed. Brain parenchyma shows normal attenuation. Ventricles are normal in size. The calvarium is intact. A tiny air-fluid l evel within the left maxillary sinus without mucosal thickening. CONCLUSION: 1. Stable tiny acute subdural hematoma on the left. 2. Stable small volume fluid within the left maxillary sinus. . . Electronically signed by: Roberto Molina MD Board Certified Radiologist 04/23/2018 4:45 AM EST
--- NOTE | 2018-04-23 05:44 | P.CONNS ---
History of Present Illness Service: ED Primary Care Provider: Gabi Mosquera MD Chief Complaint: Left arm pain History of Present Illness: 77yoM admitted from [place], drunk with fall, small left frontal SDH and proximal left humerus fracture, GCS 15, ETOH ~170 last evening, now sober. Complaining of left shoulder pain, in sling. [facility] - History History Provided By: Patient - Medical History Medical History: Medical History (Last Reviewed 04/23/18 @ 01:59 by Marisol Serrano DO) H/O nephrolithotomy with removal of calculi (Acute) Elevated cholesterol (Acute) Mitral regurgitation (Acute) Kidney stones (Acute) Hypertension (Acute) - Surgical History Surgical History: Surgical History (Last Reviewed 04/23/18 @ 01:59 by Marisol Serrano DO) Hx of inguinal hernia repair (Acute) History of phacoemulsification of cataract of left eye with intraocular lens implantation (Acute) History of back surgery (Acute) H/O repair of left rotator cuff (Acute) - Tobacco History Second Hand Smoke Exposure: No Tobacco Use In Past 30 Days: No Smoking Status: Former smoker Tobacco Type: Cigarettes - Alcohol History How Often Do You Have a Drink Containing Alcohol: 2 to 3 times a week - Substance Use History Substance History: No History of Abuse - Travel History Recent Travel in the [place] Within the Last 8 Weeks: No Recent Travel Out of the Country Within the Last 8 Weeks: No - Immunization History Tetanus Immunization: Unsure Medications and Allergies Active Medications: Active Medications Acetaminophen (Tylenol) 650 mg PO Q6H PRN PRN Reason: PAIN 1-10 AND/OR FEVER >101F Al Hydroxide/Mg Hydroxide (Milk Of Steve Liq) 30 ml PO Q12H PRN PRN Reason: Mild Constipation Albuterol (Duoneb Neb (Prn)) 1 ampul NEB Q2HR NEB PRN PRN Reason: WHEEZING Bisacodyl (Dulcolax Supp) 10 mg RECTAL DAILY PRN PRN Reason: SEVERE CONSITIPATION Chlorhexidine Gluconate (Chlorhexidine 2% Cloth) 3 pack TOPICAL DAILY@0400 MARV Stop: 04/28/18 03:59 Chlorhexidine Gluconate (Chlorhexidine 2% Cloth) 3 pack TOPICAL DAILY@0400 PRN PRN Reason: Extra cloth needed Stop: 04/28/18 03:59 Famotidine (Pepcid) 20 mg PO BID MARV Famotidine (Pepcid Pf Inj) 20 mg IV.PUSH Q12HR MARV Magnesium Sulfate 4 gm/ Sodium (Chloride) 100 mls @ 50 mls/hr IV.SIG UNSCH PRN PRN Reason: For Magnesium 0.9 - 1.1 mg/dL Sodium Chloride (Ns Inj) 1,000 mls @ 100 mls/hr IV.CONT .Q10H [facility] Last Admin: 04/23/18 02:47 Dose: 100 mls/hr Potassium Chloride (Kcl 40 Meq Premix Inj) 40 meq in 100 mls @ 25 mls/hr IV.SIG Q2H PRN PRN Reason: For Potassium 2.8 - 3.2 mEq/L Potassium Chloride (Kcl 20 Meq Premix Inj) 20 meq in 100 mls @ 50 mls/hr IV.SIG Q2H PRN PRN Reason: For Potassium 3.3 - 3.5 mEq/L Potassium Chloride (Kcl 40 Meq Premix Inj) 40 meq in 100 mls @ 25 mls/hr IV.SIG UNSCH PRN PRN Reason: For Potassium 3.3 - 3.5 mEq/L Potassium Chloride (Kcl 20 Meq Premix Inj) 20 meq in 100 mls @ 50 mls/hr IV.SIG Q2H PRN PRN Reason: For Potassium 2.8 - 3.2 mEq/L Potassium Phosphate 30 mmol/ (Sodium Chloride) 260 mls @ 42 mls/hr IV.SIG UNSCH PRN PRN Reason: SEE LABEL COMMENTS Sodium Phosphate 30 mmol/ (Sodium Chloride) 260 mls @ 42 mls/hr IV.SIG UNSCH PRN PRN Reason: For Phosphorus < 2.5 mg/dL Magnesium Sulfate 2 gm/ Sodium (Chloride) 100 mls @ 50 mls/hr IV.SIG UNSCH PRN PRN Reason: For Magnesium 1.2 - 1.6 mg/dL Thiamine HCl 100 mg/ Sodium (Chloride) 101 mls @ 100 mls/hr IV.SIG DAILY MARV Last Admin: 04/23/18 03:03 Dose: 100 mls/hr Lactulose (Lactulose Liq) 30 ml PO DAILY PRN PRN Reason: SEVERE CONSITIPATION Levetiracetam (Keppra) 500 mg PO BID MARV Magnesium Oxide (Mag-Ox) 800 mg PO UNSCH PRN PRN Reason: For Magnesium 1.2 - 1.6 mg/dL Ondansetron HCl (Zofran Inj) 4 mg IV.PUSH Q6H PRN PRN Reason: NAUSEA OR VOMITING Oxycodone HCl (Roxicodone) 5 mg PO Q4H PRN PRN Reason: PAIN SCALE 6 TO 10 Oxycodone HCl (Roxicodone) 2.5 mg PO Q4H PRN PRN Reason: PAIN SCALE 1 TO 5 Last Admin: 04/23/18 04:56 Dose: 2.5 mg Potassium Chloride (Kcl Liq) 40 meq PO UNSCH PRN PRN Reason: POTASSIUM LESS THAN 3.5 Potassium Chloride (Kcl Liq) 40 meq PO UNSCH PRN PRN Reason: Potassium level 3.3-3.5 mEq/L Potassium Phosphate (K-Phos Original) 2,000 mg PO Q4H PRN PRN Reason: Phosphorus Less Than 2.5 mg/dL Potassium Phosphate (K-Phos Original) 2,000 mg PO UNSCH PRN PRN Reason: SEE LABEL COMMENTS Pravastatin Sodium (Pravachol) 40 mg PO DAILY MARV Senna/Docusate Sodium (Yessenia-Colace) 1 tab PO BID MARV Sennosides (Senokot) 17.2 mg PO Q12H PRN PRN Reason: Moderate Constipation Sodium Chloride (Ns Flush) 2 ml IV.FLUSH BID MARV Sodium Chloride (Ns Flush) 2 ml IV.FLUSH PRN PRN PRN Reason: FLUSH AFTER USING IV ACCESS Allergies Allergy/AdvReac Type Severity Reaction Status Date / Time No Known Allergies Allergy Verified 04/22/18 21:34 Home Medications Medication Instructions Recorded Confirmed Type multivitamin [Multiple Vitamins] 1 tab PO QAM 08/25/17 04/22/18 History amlodipine 5 mg PO BID 04/22/18 04/22/18 History aspirin [Ecotrin] 325 mg PO DAILY 04/22/18 04/22/18 History folic acid 1 mg PO DAILY 04/22/18 04/22/18 History hydrochlorothiazide 12.5 mg PO DAILY 04/22/18 04/22/18 History lisinopril-hydrochlorothiazide 1 tab PO BID 04/22/18 04/22/18 History potassium citrate 10 meq PO DAILY 04/22/18 04/22/18 History pravastatin [Pravachol] 40 mg PO DAILY 04/22/18 04/22/18 History Exam Vital signs: Vital Signs 04/22/18 21:00 04/22/18 21:15 04/22/18 22:32 Temperature 98.4 F 98.4 F Pulse Rate 60 62 65 Respiratory Rate 16 18 18 Blood Pressure 106/60 110/58 L 115/73 Pulse Oximetry 99 99 100 04/23/18 00:10 04/23/18 01:14 04/23/18 01:17 Temperature 97.7 F Pulse Rate 66 Respiratory Rate 18 Blood Pressure 100/53 L 77/43 L Pulse Oximetry 97 04/23/18 01:21 04/23/18 01:27 04/23/18 01:30 Temperature Pulse Rate 66 61 60 Respiratory Rate 38 H 39 H 35 H Blood Pressure 76/47 L 75/44 L 73/36 L Pulse Oximetry 93 L 95 93 L 04/23/18 01:36 04/23/18 01:46 04/23/18 01:48 Temperature Pulse Rate 59 L 64 65 Respiratory Rate 38 H 34 H 30 H Blood Pressure 78/49 L 131/73 128/61 Pulse Oximetry 100 100 95 04/23/18 02:00 04/23/18 02:03 04/23/18 02:24 Temperature Pulse Rate 67 64 62 Respiratory Rate 34 H 25 H Blood Pressure 129/60 Pulse Oximetry 100 99 Intake & Output 04/22/18 04/22/18 04/23/18 06:59 18:59 06:59 Intake Total 3100 / 3100 Balance 3100 / 3100 Weight 67 kg Intake: IV 3100 / 3100 NS Inj 1,000 ML @ Wide Open IV. 3000 / 3000 SIG BOLUS ONE Rx#:[id number] Keppra 1000 mg/100 mL Premix 100 / 100 100 ML @ 400 mls/hr IV.SIG ONCE ONE Rx#:[id number] Oral 0 / 0 Other: Date of Last Bowel Movement 04/22/18 Weight On Admission 67 kg Narrative: A&O x 3 CN II-XII intact Motor 5/5 UE/LE-- left arm some tingling but tests to full strength-- do not suspect a brachial plexus injury Results - Laboratory Findings CBC and BMP: 04/22/18 21:20 04/22/18 21:20 Abnormal lab findings: Abnormal Labs 04/22/18 04/22/18 04/22/18 21:20 21:20 21:20 RBC 4.13 L MCV 103.7 H MCH 34.6 H APTT 22.6 L BUN 23 H Estimated GFR 75 L Random Glucose 122 H Serum Alcohol 194 H Assessment and Plan - Plan 77yoM with small left frontal SDH, stable on 2 scans, GCS 15. Keppra x 7d. Neuro checks. Stable for transfer out of unit, defer shoulder eval to Ortho.
[2018-04-23] MEDS: Chlorhexidine Gluconate 2% 1 Pack (2 Cloths) TOPICAL SCH (05:48)
[2018-04-23] MEDS: Senna/Docusate Sodium 8.6/50 MG Tablet PO SCH ×2 (08:32→20:20)
[2018-04-23] MEDS: levETIRAcetam 500 MG Tablet PO SCH ×2 (08:32→20:21)
[2018-04-23] MEDS: Famotidine PF Inj 20 MG/2 ML Vial IV.PUSH SCH ×2 (08:32→20:21)
[2018-04-23] MEDS: Famotidine 20 MG Tablet PO SCH ×2 (08:33→20:21)
--- NOTE | 2018-04-23 17:37 | XR ---
EXAM DATE: 04/23/2018 5:29 PM EST AGE/SEX: 77 years / Male INDICATIONS: Possible fracture. Left shoulder pain. CLINICAL DATA: This is the patient's initial encounter. Patient reports that signs and symptoms have been present for 2 days and indicates a pain score of 7/10. MEDICAL/SURGICAL HISTORY: None. None. COMPARISON: [facility], HUMERUS LEFT MIN 2V, 04/22/2018. . FINDINGS: Views osteopenia. Again noted are nondisplaced fractures of the proximal humerus involving the greate r tuberosity, lesser tuberosity, and anatomic neck. The humeral head is in normal alignment with the glenoid on the transscapular Y view. Mild degenerative changes in the AC joint without joint narrowin g. The visualized left upper ribs are intact. CONCLUSION: Multiple fractures of the proximal humerus, stable in appearance from yesterday's exam. Electronically signed by: Roberto Landon MD Board Certified Radiologist 04/23/2018 5:36 PM EST
--- NOTE | 2018-04-23 18:21 | ECG ---
Date Performed: 04/23/2018 Time Performed: 04:43:18 PTAGE: 77 years EKG: Sinus rhythm . Rightward axis Right bundle branch block Abnormal ECG PREVIOUS TRACING : 04/22/2018 21.53 Since the previous tracing, no significant change noted DOCTOR: Ivy Madrigal Interpretating Date/Time 04/23/2018 18:19:44
[2018-04-23] MEDS: amLODIPine 5 MG Tablet PO SCH (20:21)
[2018-04-23] MEDS: Lisinopril 20 MG Tablet PO SCH (20:22)
--- NOTE | 2018-04-23 20:35 | P.HPOP ---
History of Present Illness Primary Care Physician: Gabi Mosquera MD Chief Complaint: Left arm pain History of Present Illness: 77yM transferred from [facility] for subdural hematoma, left humerus fracture, and alcohol intoxication. The patient states "I have no idea what happened, I guess I fell". He admits to drinking "too much Scotch tonight" and thinks he fell. He was initially seen in the [place] [facility] and was found to have a small left frontal subdural hematoma, a left proximal humerus fracture, and an alcohol level of almost 200. He was transferred to the [facility] for surgical critical care admission and neurosurgery consultation. The patient admits to taking a baby aspirin daily but does not use any other anticoagulants or antiplatelets. He currently only complains of left arm and hand pain ("aching", constant, worse with any movement, severe). Inpatient Certification: I certify that the inpatient services were ordered in accordance with Medicare regulations governing the order. This includes certification that hospital inpatient services are reasonable and necessary and in the case of services not specified as inpatient-only under 42 CFR 419.22(n), that they are appropriately provided as inpatient services in accordance to with the 2-midnight benchmark under 43 CFR 412.3(e) Estimated Total Length of Stay (Days): 3 Plans for Post Hospital Care: Not yet determined Review of Systems Denies fevers, chills, nausea, vomiting. Denies chest pain, cough, shortness of breath. Denies abdominal pain or change in urination. Denies back pain, weakness, numbness or tingling. Denies dizziness, blurry vision or throat pain. Reports mild left shoulder pain otherwise denies any other symptoms currently REPLACED BY [facility] - History History Provided By: Patient - Medical History Medical History: Medical History (Last Reviewed 04/23/18 @ 08:20 by Michelle Villeda) H/O nephrolithotomy with removal of calculi (Acute) Elevated cholesterol (Acute) Mitral regurgitation (Acute) Kidney stones (Acute) Hypertension (Acute) - Surgical History Surgical History: Surgical History (Last Reviewed 04/23/18 @ 08:20 by Michelle Villeda) Hx of inguinal hernia repair (Acute) History of phacoemulsification of cataract of left eye with intraocular lens implantation (Acute) History of back surgery (Acute) H/O repair of left rotator cuff (Acute) - Tobacco History Second Hand Smoke Exposure: No Tobacco Use In Past 30 Days: No Smoking Status: Former smoker Tobacco Type: Cigarettes - Alcohol History How Often Do You Have a Drink Containing Alcohol: 2 to 3 times a week - Substance Use History Substance History: No History of Abuse - Travel History Recent Travel in the [place] Within the Last 8 Weeks: No Recent Travel Out of the Country Within the Last 8 Weeks: No - Immunization History Tetanus Immunization: Unsure Medications and Allergies Active Medications: Active Medications Acetaminophen (Tylenol) 650 mg PO Q6H PRN PRN Reason: PAIN 1-10 AND/OR FEVER >101F Al Hydroxide/Mg Hydroxide (Milk Of Steve Verdin) 30 ml PO Q12H PRN PRN Reason: Mild Constipation Albuterol (Duoneb Neb (Prn)) 1 ampul NEB Q2HR NEB PRN PRN Reason: WHEEZING Amlodipine Besylate (Norvasc) 5 mg PO BID [facility] Last Admin: 04/23/18 20:21 Dose: 5 mg Bisacodyl (Dulcolax Supp) 10 mg RECTAL DAILY PRN PRN Reason: SEVERE CONSITIPATION Chlorhexidine Gluconate (Chlorhexidine 2% Cloth) 3 pack TOPICAL DAILY@0400 [facility] Stop: 04/28/18 03:59 Last Admin: 04/23/18 05:48 Dose: 3 pack Chlorhexidine Gluconate (Chlorhexidine 2% Cloth) 3 pack TOPICAL DAILY@0400 PRN PRN Reason: Extra cloth needed Stop: 04/28/18 03:59 Famotidine (Pepcid) 20 mg PO BID [facility] Last Admin: 04/23/18 20:21 Dose: Not Given Famotidine (Pepcid Pf Inj) 20 mg IV.PUSH Q12HR [facility] Last Admin: 04/23/18 20:21 Dose: 20 mg Folic Acid (Folic Acid) 1 mg PO DAILY [facility] Hydrochlorothiazide (Microzide) 12.5 mg PO BID [facility] Last Admin: 04/23/18 20:20 Dose: 12.5 mg Magnesium Sulfate 4 gm/ Sodium (Chloride) 100 mls @ 50 mls/hr IV.SIG UNSCH PRN PRN Reason: For Magnesium 0.9 - 1.1 mg/dL Sodium Chloride (Ns Inj) 1,000 mls @ 100 mls/hr IV.CONT .Q10H [facility] Last Admin: 04/23/18 18:52 Dose: 100 mls/hr Potassium Chloride (Kcl 40 Meq Premix Inj) 40 meq in 100 mls @ 25 mls/hr IV.SIG Q2H PRN PRN Reason: For Potassium 2.8 - 3.2 mEq/L Potassium Chloride (Kcl 20 Meq Premix Inj) 20 meq in 100 mls @ 50 mls/hr IV.SIG Q2H PRN PRN Reason: For Potassium 3.3 - 3.5 mEq/L Potassium Chloride (Kcl 40 Meq Premix Inj) 40 meq in 100 mls @ 25 mls/hr IV.SIG UNSCH PRN PRN Reason: For Potassium 3.3 - 3.5 mEq/L Potassium Chloride (Kcl 20 Meq Premix Inj) 20 meq in 100 mls @ 50 mls/hr IV.SIG Q2H PRN PRN Reason: For Potassium 2.8 - 3.2 mEq/L Potassium Phosphate 30 mmol/ (Sodium Chloride) 260 mls @ 42 mls/hr IV.SIG UNSCH PRN PRN Reason: SEE LABEL COMMENTS Sodium Phosphate 30 mmol/ (Sodium Chloride) 260 mls @ 42 mls/hr IV.SIG UNSCH PRN PRN Reason: For Phosphorus < 2.5 mg/dL Magnesium Sulfate 2 gm/ Sodium (Chloride) 100 mls @ 50 mls/hr IV.SIG UNSCH PRN PRN Reason: For Magnesium 1.2 - 1.6 mg/dL Thiamine HCl 100 mg/ Sodium (Chloride) 101 mls @ 100 mls/hr IV.SIG DAILY [facility] Last Infusion: 04/23/18 10:09 Dose: Infused Lactulose (Lactulose Liq) 30 ml PO DAILY PRN PRN Reason: SEVERE CONSITIPATION Levetiracetam (Keppra) 500 mg PO BID [facility] Last Admin: 04/23/18 20:21 Dose: 500 mg Lisinopril (Prinivil) 20 mg PO BID [facility] Last Admin: 04/23/18 20:22 Dose: Not Given Magnesium Oxide (Mag-Ox) 800 mg PO UNSCH PRN PRN Reason: For Magnesium 1.2 - 1.6 mg/dL Ondansetron HCl (Zofran Inj) 4 mg IV.PUSH Q6H PRN PRN Reason: NAUSEA OR VOMITING Oxycodone HCl (Roxicodone) 5 mg PO Q4H PRN PRN Reason: PAIN SCALE 6 TO 10 Last Admin: 04/23/18 18:51 Dose: 5 mg Oxycodone HCl (Roxicodone) 2.5 mg PO Q4H PRN PRN Reason: PAIN SCALE 1 TO 5 Last Admin: 04/23/18 04:56 Dose: 2.5 mg Potassium Chloride (Kcl Liq) 40 meq PO UNSCH PRN PRN Reason: POTASSIUM LESS THAN 3.5 Potassium Chloride (Kcl Liq) 40 meq PO UNSCH PRN PRN Reason: Potassium level 3.3-3.5 mEq/L Potassium Phosphate (K-Phos Original) 2,000 mg PO Q4H PRN PRN Reason: Phosphorus Less Than 2.5 mg/dL Potassium Phosphate (K-Phos Original) 2,000 mg PO UNSCH PRN PRN Reason: SEE LABEL COMMENTS Pravastatin Sodium (Pravachol) 40 mg PO DAILY [facility] Last Admin: 04/23/18 08:32 Dose: 40 mg Senna/Docusate Sodium (Yessenia-Colace) 1 tab PO BID [facility] Last Admin: 04/23/18 20:20 Dose: 1 tab Sennosides (Senokot) 17.2 mg PO Q12H PRN PRN Reason: Moderate Constipation Sodium Chloride (Ns Flush) 2 ml IV.FLUSH BID [facility] Last Admin: 04/23/18 20:21 Dose: 2 ml Sodium Chloride (Ns Flush) 2 ml IV.FLUSH PRN PRN PRN Reason: FLUSH AFTER USING IV ACCESS Zolpidem Tartrate (Ambien) 10 mg PO [facility] Allergies Allergy/AdvReac Type Severity Reaction Status Date / Time No Known Allergies Allergy Verified 04/22/18 21:34 Home Medications Medication Instructions Recorded Confirmed Type multivitamin [Multiple Vitamins] 1 tab PO QAM 08/25/17 04/22/18 History amlodipine 5 mg PO BID 04/22/18 04/22/18 History aspirin [Ecotrin] 325 mg PO DAILY 04/22/18 04/22/18 History folic acid 1 mg PO DAILY 04/22/18 04/22/18 History hydrochlorothiazide 12.5 mg PO DAILY 04/22/18 04/22/18 History lisinopril-hydrochlorothiazide 1 tab PO BID 04/22/18 04/22/18 History potassium citrate 10 meq PO DAILY 04/22/18 04/22/18 History pravastatin [Pravachol] 40 mg PO DAILY 04/22/18 04/22/18 History zolpidem [Ambien] 10 mg PO HS 04/23/18 04/23/18 History Exam Vital signs: Vital Signs 04/22/18 21:00 04/22/18 21:15 04/22/18 22:32 Temperature 98.4 F 98.4 F Pulse Rate 60 62 65 Respiratory Rate 16 18 18 Blood Pressure 106/60 110/58 L 115/73 Pulse Oximetry 99 99 100 04/23/18 00:10 04/23/18 01:14 04/23/18 01:17 Temperature 97.7 F Pulse Rate 66 Respiratory Rate 18 Blood Pressure 100/53 L 77/43 L Pulse Oximetry 97 04/23/18 01:21 04/23/18 01:27 04/23/18 01:30 Temperature Pulse Rate 66 61 60 Respiratory Rate 38 H 39 H 35 H Blood Pressure 76/47 L 75/44 L 73/36 L Pulse Oximetry 93 L 95 93 L 04/23/18 01:36 04/23/18 01:46 04/23/18 01:48 Temperature Pulse Rate 59 L 64 65 Respiratory Rate 38 H 34 H 30 H Blood Pressure 78/49 L 131/73 128/61 Pulse Oximetry 100 100 95 04/23/18 02:00 04/23/18 02:03 04/23/18 02:18 Temperature Pulse Rate 67 64 64 Respiratory Rate 34 H 25 H 25 H Blood Pressure 129/60 126/61 Pulse Oximetry 100 99 100 04/23/18 02:24 04/23/18 03:00 04/23/18 04:00 Temperature Pulse Rate 62 68 62 Respiratory Rate 20 16 Blood Pressure 130/60 135/60 Pulse Oximetry 95 97 04/23/18 05:00 04/23/18 06:00 04/23/18 07:00 Temperature Pulse Rate 61 65 68 Respiratory Rate 27 H 15 19 Blood Pressure 149/74 H 146/72 H 145/75 H Pulse Oximetry 97 97 98 04/23/18 08:00 04/23/18 09:00 04/23/18 10:00 Temperature 97.9 F Pulse Rate 67 73 74 Respiratory Rate 14 24 25 H Blood Pressure 142/70 H 136/76 179/84 H Pulse Oximetry 96 99 98 04/23/18 11:00 04/23/18 12:00 04/23/18 13:00 Temperature 98.1 F Pulse Rate 76 80 72 Respiratory Rate 24 20 25 H Blood Pressure 169/80 H 167/71 H 169/75 H Pulse Oximetry 98 98 100 04/23/18 14:00 04/23/18 15:00 04/23/18 16:00 Temperature 99.5 F Pulse Rate 68 71 73 Respiratory Rate 19 18 22 Blood Pressure 176/79 H 160/80 H 149/77 H Pulse Oximetry 99 98 96 04/23/18 17:00 04/23/18 18:00 Temperature Pulse Rate 69 75 Respiratory Rate 23 25 H Blood Pressure 159/78 H 171/95 H Pulse Oximetry 98 97 Intake & Output 04/23/18 04/23/18 04/24/18 06:59 18:59 06:59 Intake Total 3201 / 3201 1551 / 1551 Output Total 675 / 675 600 / 600 Balance 2526 / 2526 951 / 951 Weight 67 kg Intake: IV 3201 / 3201 1101 / 1101 NS Inj 1,000 ML @ 100 mls/hr IV 1000 / 1000 .CONT .Q10H MARV Rx#:[id number] NS Inj 1,000 ML @ Wide Open IV. 3000 / 3000 SIG BOLUS ONE Rx#:[id number] Thiamine Inj 100 MG In NS Inj 101 / 101 101 / 101 100 ML @ 100 mls/hr IV.SIG DAILY [facility] Rx#:[id number] Keppra 1000 mg/100 mL Premix 100 / 100 100 ML @ 400 mls/hr IV.SIG ONCE ONE Rx#:[id number] Oral 0 / 0 450 / 450 Output: Urine 675 / 675 600 / 600 Other: Date of Last Bowel Movement 04/22/18 04/22/18 # Bowel Movements 0 Weight On Admission 67 kg Narrative: Awake, alert, no acute distress Normocephalic, small amount of bruising over her forehead Pupils equal No JVD Moist mucous membranes Nonlabored respirations Soft nontender abdomen Regular rate Right upper extremity: No tenderness to palpation or visible deformities. Full active range of motion and strength throughout. Sensation intact. Brisk cap refill. Left upper extremity: Mild to moderate swelling around the left shoulder with tenderness to palpation. Unable to assess shoulder range of motion due to pain. Full passive range of motion at elbow and wrist without significant discomfort. Motor intact distally. Sensation intact. Brisk cap refill. Right lower extremity: No tenderness to palpation or visible deformities. Full active range of motion and strength throughout. Sensation intact. Brisk cap refill. Left lower extremity:No tenderness to palpation or visible deformities. Full active range of motion and strength throughout. Sensation intact. Brisk cap refill. No rash Normal affect Results - Labs Result Diagrams: 04/22/18 21:20 04/22/18 21:20 Labs: Laboratory Results - last 24 hr 04/22/18 04/22/18 04/22/18 21:20 21:20 21:20 CBC w Diff Auto diff final WBC 8.3 RBC 4.13 L Hgb 14.3 Hct 42.8 MCV 103.7 H MCH 34.6 H MCHC 33.3 RDW 11.9 Plt Count 230 MPV 7.7 Neut % (Auto) 58.9 Lymph % (Auto) 32.8 Island % (Auto) 7.2 Eos % (Auto) 0.6 Baso % (Auto) 0.5 Neut # (Auto) 4.9 Lymph # (Auto) 2.7 Island # (Auto) 0.6 Eos # (Auto) 0.1 Baso # (Auto) 0.0 WBC Differential . Differential Comment . PT 10.4 INR 1.0 APTT 22.6 L Sodium 139 Potassium 3.6 Chloride 103 Carbon Dioxide 24.1 Anion Gap 12 BUN 23 H Creatinine 0.97 Estimated GFR 75 L Random Glucose 122 H Calcium 8.8 Magnesium 2.2 Total Bilirubin 0.5 AST 21 ALT 24 Alkaline Phosphatase 80 Total Protein 7.0 Albumin 3.9 Lipase 113 Nasal Screen MRSA (PCR) Serum Alcohol 194 H Blood Type Blood Type Recheck Antibody Screen 04/23/18 04/23/18 01:40 05:42 CBC w Diff WBC RBC Hgb Hct MCV MCH MCHC RDW Plt Count MPV Neut % (Auto) Lymph % (Auto) Island % (Auto) Eos % (Auto) Baso % (Auto) Neut # (Auto) Lymph # (Auto) Island # (Auto) Eos # (Auto) Baso # (Auto) WBC Differential Differential Comment PT INR APTT Sodium Potassium Chloride Carbon Dioxide Anion Gap BUN Creatinine Estimated GFR Random Glucose Calcium Magnesium Total Bilirubin AST ALT Alkaline Phosphatase Total Protein Albumin Lipase Nasal Screen MRSA (PCR) Not detected Serum Alcohol Blood Type O Positive Blood Type Recheck Required Antibody Screen Negative - Diagnostic results Imaging: Impressions Cervical Spine CT 04/22/18 21:16 CONCLUSION: 1. Anterior fixation at C3-5. Fixation hardware appear intact. 2. Stable mild compression deformity of C6 superior endplate. 3. 3 mm anterolisthesis of C5 on C6, presumably secondary to degenerative facet arthrosis. Flexion and extension views may be obtained if there is significant concern regarding ligamentous instability at this level. 4. No acute fracture. 5. Degenerative spondylosis of the cervical spine, as above. Forearm X-Ray 04/22/18 21:16 CONCLUSION: 1. No acute fracture. Head CT 04/22/18 21:16 CONCLUSION: 1. 6 mm left anterior frontal mid convexity subdural hematoma. 2. Fluid in the left maxillary sinus. Humerus X-Ray 04/22/18 21:16 CONCLUSION: Left proximal humeral fracture. Shoulder X-Ray 04/23/18 00:00 CONCLUSION: Multiple fractures of the proximal humerus, stable in appearance from yesterday' s exam. Head CT 04/23/18 06:00 CONCLUSION: 1. Stable tiny acute subdural hematoma on the left. 2. Stable small volume fluid within the left maxillary sinus. . . Caprini VTE Risk Assessment Caprini VTE Risk Assessment: Moderate/High Risk (score >= 2) VTE Pharmacological Exception Reason: Hemorrhage Caprini Risk Assessment Model: Point Value = 1 Point Value = 2 Point Value = 3 Point Value = 5 Age 41-60 Minor surgery BMI > 25 kg/m2 Swollen legs Varicose veins or History of unexplained or recurrent spontaneous Oral contraceptives or hormone replacement Sepsis (< 1 month) Serious lung disease, including pneumonia (< 1 month) Abnormal pulmonary function Acute myocardial infarction Congestive heart failure (< 1 month) History of inflammatory bowel disease Medical patient at bed rest Age 61-74 Arthroscopic surgery Major open surgery (> 45 min) Laparoscopic surgery (> 45 min) Malignancy Confined to bed (> 72 hours) Immobilizing plaster cast Central venous access Age >= 75 History of VTE Family history of VTE Factor V Leiden Prothrombin [id number] Lupus anticoagulant Anticardiolipin antibodies Elevated serum homocysteine Heparin-induced thrombocytopenia Other congenital or acquired thrombophilia Stroke (< 1 month) Elective arthroplasty Hip, pelvis, or leg fracture Acute spinal cord injury (< 1 month) Prophylaxis Regimen: Total Risk Factor Score Risk Level Prophylaxis Regimen 0-1 Low Early ambulation 2 Moderate Order ONE of the following: *Sequential Compression Device (SCD) *Heparin 5000 units SQ BID 3-4 Higher Order ONE of the following medications: *Heparin 5000 units SQ TID *Enoxaparin/Lovenox 40 mg SQ daily (WT < 150 kg, CrCl > 30 mL/min) *Enoxaparin/Lovenox 30 mg SQ daily (WT < 150 kg, CrCl > 10-29 mL/min) *Enoxaparin/Lovenox 30 mg SQ BID (WT < 150 kg, CrCl > 30 mL/min) AND/OR *Sequential Compression Device (SCD) 5 or more Highest Order ONE of the following medications: *Heparin 5000 units SQ TID (Preferred with Epidurals) *Enoxaparin/Lovenox 40 mg SQ daily (WT < 150 kg, CrCl > 30 mL/min) *Enoxaparin/Lovenox 30 mg SQ daily (WT < 150 kg, CrCl > 10-29 mL/min) *Enoxaparin/Lovenox 30 mg SQ BID (WT < 150 kg, CrCl > 30 mL/min) AND *Sequential Compression Device (SCD) Assessment and Plan - Assessment and Plan 77-year-old gentleman with closed left proximal humerus fracture, minimally displaced. Radiograph reviewed by myself and with the patient. Patient does have a closed left proximal humerus fracture which is minimally to nondisplaced. At this time I would recommend at least an initial attempt at conservative management. Patient may be kept in a sling and should remain nonweightbearing to the left upper extremity. Should this fracture displaced, he may require discussion regarding surgical intervention at that time. I would like to see the patient back in my office in approximately 2 weeks with repeat x-rays of the left shoulder at that time.
--- NOTE | 2018-04-23 21:03 | ECG ---
Date Performed: 04/22/2018 Time Performed: 21:53:30 PTAGE: 77 years EKG: Sinus rhythm POSSIBLE LEFT ATRIAL ENLARGEMENT RIGHT BUNDLE BRANCH BLOCK ABNORMAL ECG PREVIOUS TRACING : 12/26/2010 23.56 Since the previous tracing, no significant change noted DOCTOR: Ivy Madrigal Interpretating Date/Time 04/23/2018 21:02:34
[2018-04-24] MEDS: Chlorhexidine Gluconate 2% 1 Pack (2 Cloths) TOPICAL SCH (03:58)
[2018-04-24 04:53] LABS: Baso % (Auto) 0.2 % (0.0-2.0); Hematocrit 38.4 % (39.0-51.0); Hemoglobin 12.9 gm/dL (13.0-17.0); Lymph # (Auto) 0.9 th/mm3 (1.0-4.8); Lymph % (Auto) 8.6 % (9.0-44.0); Mean Corpuscular HGB Conc 33.7 % (32.0-36.0); Mean Corpuscular Hemoglobin 35.4 pg (27.0-34.0); Mean Corpuscular Volume 104.9 fL (80.0-100.0); Mean Platelet Volume 7.7 fL (7.0-11.0); Mono # (Auto) 1.4 th/mm3 (0.0-0.9); Mono % (Auto) 13.5 % (0.0-8.0); Neut # (Auto) 7.9 th/mm3 (1.8-7.7); Neut % (Auto) 77.7 % (16.0-70.0); Platelet Count 194 th/mm3 (150-450); Red Blood Count 3.66 mil/mm3 (4.50-5.90); Red Cell Distribution Width 12.3 % (11.6-17.2); White Blood Count 10.1 th/mm3 (4.0-11.0)
[2018-04-24 04:56] LABS: Prothrombin Time 10.1 sec (9.8-11.6)
[2018-04-24 05:02] LABS: Albumin 3.7 g/dL (3.4-5.0); Anion Gap 12 meq/L (5-15); Aspartate Aminotransferase 29 U/L (15-37); Blood Urea Nitrogen 11 mg/dL (7-18); Calcium 8.3 mg/dL (8.5-10.1); Carbon Dioxide 23.4 meq/L (21.0-32.0); Chloride 102 meq/L (98-107); Glomerular Filtration Rate Greater Than 89 mL/min (>89); Glucose,Random 116 mg/dL (74-106); Sodium 137 meq/L (136-145)
[2018-04-24 05:03] LABS: Alanine Aminotransferase 24 U/L (12-78); Magnesium 1.8 mg/dL (1.5-2.5)
[2018-04-24 05:05] LABS: Alkaline Phosphatase 69 U/L (45-117); Total Protein 6.9 g/dL (6.4-8.2)
--- NOTE | 2018-04-24 05:23 | P.PNIM ---
Subjective Interval history: Consulted by CCM for med mgt and transfer of care. Chart reviewed. Patient wanting to get out of bed to use the bathroom though he has a condom catheter. Discussed with nursing, fall risk he is very impulsive. Discussed with , he needs to go to residential facility Physical Exam Vital signs: Vital Signs 04/23/18 06:00 04/23/18 07:00 04/23/18 08:00 Temperature 97.9 F Pulse Rate 65 68 67 Respiratory Rate 15 19 14 Blood Pressure 146/72 H 145/75 H 142/70 H Pulse Oximetry 97 98 96 04/23/18 09:00 04/23/18 10:00 04/23/18 11:00 Temperature Pulse Rate 73 74 76 Respiratory Rate 24 25 H 24 Blood Pressure 136/76 179/84 H 169/80 H Pulse Oximetry 99 98 98 04/23/18 12:00 04/23/18 13:00 04/23/18 14:00 Temperature 98.1 F Pulse Rate 80 72 68 Respiratory Rate 20 25 H 19 Blood Pressure 167/71 H 169/75 H 176/79 H Pulse Oximetry 98 100 99 04/23/18 15:00 04/23/18 16:00 04/23/18 17:00 Temperature 99.5 F Pulse Rate 71 73 69 Respiratory Rate 18 22 23 Blood Pressure 160/80 H 149/77 H 159/78 H Pulse Oximetry 98 96 98 04/23/18 18:00 04/23/18 19:00 04/23/18 20:00 Temperature 98.6 F Pulse Rate 75 74 72 Respiratory Rate 25 H 23 22 Blood Pressure 171/95 H 173/77 H 119/77 Pulse Oximetry 97 97 94 L 04/23/18 21:00 04/23/18 22:00 04/23/18 23:00 Temperature Pulse Rate 71 70 68 Respiratory Rate 23 27 H 23 Blood Pressure 152/81 H 155/76 H 157/74 H Pulse Oximetry 95 97 96 04/24/18 00:00 04/24/18 00:56 04/24/18 01:00 Temperature 98.6 F Pulse Rate 71 98 H Respiratory Rate 22 26 H Blood Pressure 156/76 H 157/72 H Pulse Oximetry 96 96 04/24/18 01:03 04/24/18 02:00 04/24/18 02:09 Temperature Pulse Rate 79 74 96 H Respiratory Rate 10 L 18 32 H Blood Pressure Pulse Oximetry 95 94 L 04/24/18 02:11 04/24/18 04:00 Temperature Pulse Rate Respiratory Rate 16 Blood Pressure 171/71 H Pulse Oximetry Intake & Output 04/23/18 04/23/18 04/24/18 06:59 18:59 06:59 Intake Total 3201 / 3201 1551 / 1551 1000 / 1000 Output Total 675 / 675 600 / 600 125 / 125 Balance 2526 / 2526 951 / 951 875 / 875 Weight 67 kg Intake: IV 3201 / 3201 1101 / 1101 1000 / 1000 NS Inj 1,000 ML @ 100 mls/hr IV 1000 / 1000 1000 / 1000 .CONT .Q10H MARV Rx#:[id number] NS Inj 1,000 ML @ Wide Open IV. 3000 / 3000 SIG BOLUS ONE Rx#:[id number] Thiamine Inj 100 MG In NS Inj 101 / 101 101 / 101 100 ML @ 100 mls/hr IV.SIG DAILY MARV Rx#:[id number] Keppra 1000 mg/100 mL Premix 100 / 100 100 ML @ 400 mls/hr IV.SIG ONCE ONE Rx#:[id number] Oral 0 / 0 450 / 450 0 / 0 Output: Urine 675 / 675 600 / 600 125 / 125 Other: Date of Last Bowel Movement 04/22/18 04/22/18 04/22/18 # Bowel Movements 0 Weight On Admission 67 kg Narrative: GEN: Elderly male lying in bed, no acute distress HEENT: Superficial abrasion to left lateral orbit with mild ecchymosis, PERRL, EOMI CARDIO: Regular rate and rhythm PULM: Clear to auscultation bilaterally ABD/GI: Soft and non-tender in all quadrants EXT/MSK: Left upper extremity is in sling, superficial abrasion to thenar eminence, strong radial pulse, women's ministry director strength intact SKIN: Warm and well-perfused NEURO: GCS 15, awake, alert, oriented x 3, motor strength 5/5 and sensation intact to all extremities, no focal neuro deficits PSYCH: Calm, no current agitation Results Labs CBC & Chem 7: 04/24/18 03:32 04/24/18 03:33 Imaging Imaging: ITS Impressions Cervical Spine CT 04/22/18 21:16 CONCLUSION: 1. Anterior fixation at C3-5. Fixation hardware appear intact. 2. Stable mild compression deformity of C6 superior endplate. 3. 3 mm anterolisthesis of C5 on C6, presumably secondary to degenerative facet arthrosis. Flexion and extension views may be obtained if there is significant concern regarding ligamentous instability at this level. 4. No acute fracture. 5. Degenerative spondylosis of the cervical spine, as above. Forearm X-Ray 04/22/18 21:16 CONCLUSION: 1. No acute fracture. Humerus X-Ray 04/22/18 21:16 CONCLUSION: Left proximal humeral fracture. Shoulder X-Ray 04/23/18 00:00 CONCLUSION: Multiple fractures of the proximal humerus, stable in appearance from yesterday' s exam. Head CT 04/23/18 06:00 CONCLUSION: 1. Stable tiny acute subdural hematoma on the left. 2. Stable small volume fluid within the left maxillary sinus. . . Procedures Procedures: none Assessment and Plan (1) Hypotension: Code(s): I95.9 - Hypotension, unspecified Status: Acute (2) Multiple contusions: Code(s): T07.XXXA - Unspecified multiple injuries, initial encounter Status: Acute (3) Acute subdural hematoma: Code(s): S06.5X9A - Traumatic subdural hemorrhage with loss of consciousness of unspecified duration, initial encounter Status: Acute (4) Closed fracture of left proximal humerus: Code(s): S42.202A - Unspecified fracture of upper end of left humerus, initial encounter for closed fracture Status: Acute (5) Alcohol intoxication: Code(s): F10.929 - Alcohol use, unspecified with intoxication, unspecified Status: Acute Plan 77yM presenting with alcohol intoxication, unwitnessed fall, subdural hematoma, left proximal humerus fracture NEURO: Acute subdural hematoma Alcohol intoxication -Avoid all anticoagulants/ antiplatelets until cleared by [facility] [place] -[facility] for seizure prophylaxis x 1 week total -Thiamine supplementation -Monitor for signs of alcohol withdrawal; would like to avoid benzos unless necessary to prevent clouding neuro exam -Pain control as BP tolerates CARDIO: Acute hypotension History of hypertension and dyslipidemia -Patient has no signs of bleeding; Suspect his hypotension is due to hypovolemia as he improved with bolus x 2 -Now htnsive -Continue home dose of statin -Cardiac monitoring PULM: -No active issues F/E/N: -po -dc IVF MSK/SKIN: Left proximal humerus fracture Multiple contusions -Pain control -Sling/ swath and non-weight bearing to LUE -Ortho recommends conservative mgt. F/u in 2 weeks -Local wound care; patient's last tetanus booster was approximately 5 years ago -PT eval PROPHY: -SCDs only, SQH contraindicated in the setting of subdural hematoma -PPI until tolerating PO E-FORCE Prescription Drug Monitoring Database has been queried and verified prior to prescribing the controlled subsection. Patient is having significant pain caused by [wrist fracture] which will last more than 3 days. Trial of alternative treatment options other than prescribed opioids has not helped. I believe that it is medically necessary to treat the patients pain because it is affecting patients ability to [do ADL]. Progress Note: Quality VTE Deep Vein Thrombosis/Pulmonary Embolism Present on Admission: No _ (1) Alcohol intoxication Qualifiers: Complication of substance-induced condition: with unspecified complication Qualified Code(s): F10.929 - Alcohol use, unspecified with intoxication, unspecified (2) Hypotension Qualifiers: Hypotension type: Trimester: (3) Closed fracture of left proximal humerus Qualifiers: Encounter type: initial encounter Fracture alignment: nondisplaced Fracture healing: Fracture morphology: other fracture Qualified Code(s): S42.295A - Other nondisplaced fracture of upper end of left humerus, initial encounter for closed fracture
[2018-04-24] MEDS: levETIRAcetam 500 MG Tablet PO SCH ×2 (08:47→20:40)
[2018-04-24] MEDS: Famotidine 20 MG Tablet PO SCH ×2 (08:48→20:41)
[2018-04-24] MEDS: Potassium Phosphate 500 MG Soluble Tablet PO SCH ×2 (08:48→20:40)
[2018-04-24] MEDS: Senna/Docusate Sodium 8.6/50 MG Tablet PO SCH ×2 (08:48→20:41)
[2018-04-24] MEDS: amLODIPine 5 MG Tablet PO SCH ×2 (08:49→20:41)
[2018-04-24] MEDS: Folic Acid 1 MG Tablet PO SCH (08:49)
[2018-04-24] MEDS: Lisinopril 20 MG Tablet PO SCH ×2 (08:49→20:41)
[2018-04-24] MEDS: Sod Chloride 0.9% Inj 1,000 ML IV.CONT SCH (14:00)
[2018-04-25] MEDS: Chlorhexidine Gluconate 2% 1 Pack (2 Cloths) TOPICAL SCH (04:29)
[2018-04-25 06:34] LABS: Baso % (Auto) 0.1 % (0.0-2.0); Hematocrit 41.6 % (39.0-51.0); Hemoglobin 14.2 gm/dL (13.0-17.0); Lymph # (Auto) 0.8 th/mm3 (1.0-4.8); Lymph % (Auto) 7.1 % (9.0-44.0); Mean Corpuscular HGB Conc 34.1 % (32.0-36.0); Mean Corpuscular Hemoglobin 34.6 pg (27.0-34.0); Mean Corpuscular Volume 101.5 fL (80.0-100.0); Mean Platelet Volume 7.8 fL (7.0-11.0); Mono # (Auto) 1.3 th/mm3 (0.0-0.9); Mono % (Auto) 11.4 % (0.0-8.0); Neut # (Auto) 9.1 th/mm3 (1.8-7.7); Neut % (Auto) 81.4 % (16.0-70.0); Platelet Count 194 th/mm3 (150-450); Red Cell Distribution Width 12.1 % (11.6-17.2); White Blood Count 11.2 th/mm3 (4.0-11.0)
[2018-04-25 06:55] LABS: Carbon Dioxide 28.8 meq/L (21.0-32.0); Phosphorus 2.7 mg/dL (2.5-4.9); Potassium 3.3 meq/L (3.5-5.1)
[2018-04-25] MEDS: Lisinopril 20 MG Tablet PO SCH (08:43)
[2018-04-25] MEDS: levETIRAcetam 500 MG Tablet PO SCH (08:44)
[2018-04-25] MEDS: Folic Acid 1 MG Tablet PO SCH (08:44)
[2018-04-25] MEDS: Senna/Docusate Sodium 8.6/50 MG Tablet PO SCH (08:44)
[2018-04-25] MEDS: Potassium Phosphate 500 MG Soluble Tablet PO SCH (08:44)
[2018-04-25] MEDS: Famotidine 20 MG Tablet PO SCH (08:44)
[2018-04-25] MEDS: amLODIPine 5 MG Tablet PO SCH (08:44)
[2018-04-25 11:49] VITALS: RESP 18
--- NOTE | 2018-04-25 12:29 | P.PNIM ---
Subjective Interval history: Follow-up subdural hematoma. Today he is less impulsive. He is awake and alert and cooperative. Physical Exam Vital signs: Vital Signs 04/24/18 16:00 04/24/18 16:57 04/24/18 20:45 Temperature 98.8 F 99.0 F Pulse Rate 82 83 80 Respiratory Rate 18 18 Blood Pressure 132/72 116/70 Pulse Oximetry 94 L 97 04/25/18 01:18 04/25/18 04:00 04/25/18 04:31 Temperature 98.1 F 97.8 F Pulse Rate 88 76 Respiratory Rate 18 16 20 Blood Pressure 149/71 H 138/74 Pulse Oximetry 97 97 04/25/18 07:43 04/25/18 11:48 Temperature 97.5 F L 97.8 F Pulse Rate 76 80 Respiratory Rate 20 18 Blood Pressure 135/72 121/77 Pulse Oximetry 99 95 Intake & Output 04/24/18 04/25/18 04/25/18 18:59 06:59 18:59 Intake Total 0 / 0 1000 / 1000 Output Total 1150 / 1150 Balance 0 / 0 -150 / -150 Weight 63.6 kg Intake: IV 0 / 0 NS Inj 1,000 ML @ 100 mls/hr IV 0 / 0 .CONT .Q10H MARV Rx#:[id number] Oral 1000 / 1000 Output: Urine 1150 / 1150 Other: # Voids 4 2 # Incontinent Voids 2 Narrative: GEN: Elderly male lying in bed, no acute distress HEENT: Superficial abrasion to left lateral orbit with mild ecchymosis, PERRL, EOMI CARDIO: Regular rate and rhythm PULM: Clear to auscultation bilaterally ABD/GI: Soft and non-tender in all quadrants EXT/MSK: Left upper extremity is in sling, superficial abrasion to thenar eminence, strong radial pulse, marine superintendent strength intact SKIN: Warm and well-perfused NEURO: GCS 15, awake, alert, oriented x 3, motor strength 5/5 and sensation intact to all extremities, no focal neuro deficits PSYCH: Calm, no current agitation Results Labs CBC & Chem 7: 04/25/18 05:37 04/25/18 05:37 Procedures Procedures: none Assessment and Plan (1) Hypotension: Code(s): I95.9 - Hypotension, unspecified Status: Acute (2) Multiple contusions: Code(s): T07.XXXA - Unspecified multiple injuries, initial encounter Status: Acute (3) Acute subdural hematoma: Code(s): S06.5X9A - Traumatic subdural hemorrhage with loss of consciousness of unspecified duration, initial encounter Status: Acute (4) Closed fracture of left proximal humerus: Code(s): S42.202A - Unspecified fracture of upper end of left humerus, initial encounter for closed fracture Status: Acute (5) Alcohol intoxication: Code(s): F10.929 - Alcohol use, unspecified with intoxication, unspecified Status: Acute Plan 77yM presenting with alcohol intoxication, unwitnessed fall, subdural hematoma, left proximal humerus fracture NEURO: Acute subdural hematoma. Stable Alcohol intoxication -Avoid all anticoagulants/ antiplatelets until cleared by [facility] [place] -[facility] for seizure prophylaxis x 1 week total -Thiamine supplementation -Monitor for signs of alcohol withdrawal; would like to avoid benzos unless necessary to prevent clouding neuro exam -Pain control as BP tolerates CARDIO: Acute hypotension History of hypertension and dyslipidemia -Patient has no signs of bleeding; Suspect his hypotension is due to hypovolemia as he improved with bolus x 2 -Now htnsive. Improved -Continue home dose of statin -Cardiac monitoring PULM: -No active issues F/E/N: -po -dc IVF MSK/SKIN: Left proximal humerus fracture Multiple contusions -Pain control -Sling/ swath and non-weight bearing to LUE -Ortho recommends conservative mgt. F/u in 2 weeks -Local wound care; patient's last tetanus booster was approximately 5 years ago -PT eval PROPHY: -SCDs only, SQH contraindicated in the setting of subdural hematoma -PPI until tolerating PO E-FORCE Prescription Drug Monitoring Database has been queried and verified prior to prescribing the controlled subsection. Patient is having significant pain caused by [wrist fracture] which will last more than 3 days. Trial of alternative treatment options other than prescribed opioids has not helped. I believe that it is medically necessary to treat the patients pain because it is affecting patients ability to [do ADL]. Medically stable for discharge to rehab Progress Note: Quality VTE Deep Vein Thrombosis/Pulmonary Embolism Present on Admission: No _ (1) Hypotension Qualifiers: Hypotension type: Trimester: (2) Closed fracture of left proximal humerus Qualifiers: Encounter type: initial encounter Fracture alignment: nondisplaced Fracture healing: Fracture morphology: other fracture Qualified Code(s): S42.295A - Other nondisplaced fracture of upper end of left humerus, initial encounter for closed fracture (3) Alcohol intoxication Qualifiers: Complication of substance-induced condition: with unspecified complication Qualified Code(s): F10.929 - Alcohol use, unspecified with intoxication, unspecified
[2018-04-25 15:35] VITALS: BP 111/67; PULSE 82; TEMP 98; O2SAT 94
--- NOTE | 2018-04-26 04:55 | P.DS ---
DS: Providers Date of admission: 04/22/18 23:12 Primary care physician: Gabi Mosquera MD Consults: 04/23/18 01:45 Consult to Neurosurgery Routine Consulting Provider: Ventura Crockett Patient known to:: Ventura Crockett Reason for Consultation: subdural hematoma Spoke with:: ADDED TO LIST - CPUTTESY CALL IN MORNING Date Notified:: 04/23/18 Time Notified:: 02:37 Ordering Provider: DARIA Consult to Orthopedic Surgery Routine Consulting Provider: Gela Randle Reason for Consultation: Left proximal humerus fracture Notified:: Service Spoke with:: Shante Date Notified:: 04/23/18 Time Notified:: 02:31 Ordering Provider: ADRIA 04/23/18 08:26 Consult to Hospitalist Routine Consulting Provider: Mukesh Edwards Reason for Consultation: Assume care in am 04/24/18 Notified:: Service Spoke with:: carmen Date Notified:: 04/23/18 Time Notified:: 08:36 Comments:: waiting button broacher back Ordering Provider: KIERA 04/25/18 08:20 HUB Only Consult Order Routine Consulting Provider: [facility] Brief History from admission: 77yM transferred from [facility] for subdural hematoma, left humerus fracture, and alcohol intoxication. The patient states "I have no idea what happened, I guess I fell". He admits to drinking "too much Scotch tonight" and thinks he fell. He was initially seen in the [facility] and was found to have a small left frontal subdural hematoma, a left proximal humerus fracture, and an alcohol level of almost 200. He was transferred to the [facility] for surgical critical care admission and neurosurgery consultation. The patient admits to taking a baby aspirin daily but does not use any other anticoagulants or antiplatelets. He currently only complains of left arm and hand pain ("aching", constant, worse with any movement, severe). DS: Diagnosis Discharge Diagnosis (1) Hypotension: Status: Acute (2) Multiple contusions: Status: Acute (3) Acute subdural hematoma: Status: Acute (4) Closed fracture of left proximal humerus: Status: Acute (5) Alcohol intoxication: Status: Acute DS: Summary 77yM presenting with alcohol intoxication, unwitnessed fall, subdural hematoma, left proximal humerus fracture NEURO: Acute subdural hematoma. Stable Alcohol intoxication -Avoid all anticoagulants/ antiplatelets until cleared by [facility] -[facility] for seizure prophylaxis x 1 week total -Thiamine supplementation -Monitor for signs of alcohol withdrawal; would like to avoid benzos unless necessary to prevent clouding neuro exam -Pain control as BP tolerates CARDIO: Acute hypotension History of hypertension and dyslipidemia -Patient has no signs of bleeding; Suspect his hypotension is due to hypovolemia as he improved with bolus x 2 -Now htnsive. Improved -Continue home dose of statin -Cardiac monitoring PULM: -No active issues F/E/N: -po -dc IVF MSK/SKIN: Left proximal humerus fracture Multiple contusions -Pain control -Sling/ swath and non-weight bearing to LUE -Ortho recommends conservative mgt. F/u in 2 weeks -Local wound care; patient's last tetanus booster was approximately 5 years ago -PT eval PROPHY: -SCDs only, SQH contraindicated in the setting of subdural hematoma -PPI until tolerating PO E-FORCE Prescription Drug Monitoring Database has been queried and verified prior to prescribing the controlled subsection. Patient is having significant pain caused by [wrist fracture] which will last more than 3 days. Trial of alternative treatment options other than prescribed opioids has not helped. I believe that it is medically necessary to treat the patients pain because it is affecting patients ability to [do ADL]. Medically stable for discharge to rehab Time Spent with Patient Total time spent providing and/or coordinating discharge services: Greater than 30 minutes Quality: VTE Deep Vein Thrombosis/Pulmonary Embolism Present on Admission: No Exam Narrative Exam Narrative: GEN: Elderly male lying in bed, no acute distress HEENT: Superficial abrasion to left lateral orbit with mild ecchymosis, PERRL, EOMI CARDIO: Regular rate and rhythm PULM: Clear to auscultation bilaterally ABD/GI: Soft and non-tender in all quadrants EXT/MSK: Left upper extremity is in sling, superficial abrasion to thenar eminence, strong radial pulse, sleeve bottom feller strength intact SKIN: Warm and well-perfused NEURO: GCS 15, awake, alert, oriented x 3, motor strength 5/5 and sensation intact to all extremities, no focal neuro deficits PSYCH: Calm, no current agitation Results Procedures completed during hospitalization: none Labs on day of discharge: Labs from last 24 hours 04/25/18 04/25/18 05:37 05:37 WBC 11.2 H RBC 4.10 L Hgb 14.2 Hct 41.6 MCV 101.5 H MCH 34.6 H MCHC 34.1 RDW 12.1 Plt Count 194 MPV 7.8 Neut % (Auto) 81.4 H Lymph % (Auto) 7.1 L Holt % (Auto) 11.4 H Eos % (Auto) 0.0 Baso % (Auto) 0.1 Neut # (Auto) 9.1 H Lymph # (Auto) 0.8 L Holt # (Auto) 1.3 H Eos # (Auto) 0.0 Baso # (Auto) 0.0 WBC Differential . Differential Comment Auto diff final Sodium 134 L Potassium 3.3 L Chloride 96 L Carbon Dioxide 28.8 Anion Gap 9 BUN 10 Creatinine 0.90 Estimated GFR 82 L Random Glucose 140 H Calcium 9.0 Phosphorus 2.7 Magnesium 2.0 Impressions ITS Impressions Cervical Spine CT 04/22/18 21:16 CONCLUSION: 1. Anterior fixation at C3-5. Fixation hardware appear intact. 2. Stable mild compression deformity of C6 superior endplate. 3. 3 mm anterolisthesis of C5 on C6, presumably secondary to degenerative facet arthrosis. Flexion and extension views may be obtained if there is significant concern regarding ligamentous instability at this level. 4. No acute fracture. 5. Degenerative spondylosis of the cervical spine, as above. Forearm X-Ray 04/22/18 21:16 CONCLUSION: 1. No acute fracture. Humerus X-Ray 04/22/18 21:16 CONCLUSION: Left proximal humeral fracture. Shoulder X-Ray 04/23/18 00:00 CONCLUSION: Multiple fractures of the proximal humerus, stable in appearance from yesterday' s exam. Head CT 04/23/18 06:00 CONCLUSION: 1. Stable tiny acute subdural hematoma on the left. 2. Stable small volume fluid within the left maxillary sinus. . . Discharge Plan Discharge Disposition Patient Disposition: Discharge to SNF Discharge Condition Condition: Fair Discharge Order Discharge Orders: Discharge Order (Routine); Ordered 04/25/18 Ordered By: Mukesh Edwards Physicians Team Primary Care Provider: Gabi Mosquera Attending Provider: Mukesh Edwards Other Providers: Ventura Crockett ; Gela Randle ; Kevyn Martinez ; [facility] Rxs /Orders / Referrals /Forms Prescriptions: New zolpidem 10 mg Tablet 10 mg PO HS Qty: 3 RF: 0 oxycodone 5 mg Tablet 5 mg PO Q6H PRN (Reason: Acute Pain Exception) Qty: 12 RF: 0 ipratropium-albuterol 0.5 mg-3 mg(2.5 mg base)/3 mL Solution For Nebulization 1 amp NEB Q2HR NEB PRN (Reason: Wheezing) Qty: 300 RF: 0 levetiracetam [Keppra] 500 mg Tablet 500 mg PO BID Qty: 10 RF: 0 thiamine HCl (vitamin B1) 100 mg Tablet 100 mg PO DAILY Qty: 30 RF: 0 Continue multivitamin [Multiple Vitamins] Tablet 1 tab PO QAM RF: 0 lisinopril-hydrochlorothiazide 20-12.5 mg Tablet 1 tab PO BID RF: 0 pravastatin [Pravachol] 40 mg Tablet 40 mg PO DAILY RF: 0 amlodipine 5 mg Tablet 5 mg PO BID RF: 0 potassium citrate 10 mEq (1,080 mg) Tablet Extended Release 10 meq PO DAILY RF: 0 folic acid 1 mg Tablet 1 mg PO DAILY RF: 0 hydrochlorothiazide 12.5 mg Tablet 12.5 mg PO DAILY RF: 0 Discontinued aspirin [Ecotrin] 325 mg Tablet,Delayed Release (Dr/Ec) 325 mg PO DAILY RF: 0 zolpidem [Ambien] 10 mg Tablet 10 mg PO HS RF: 0 Referrals: Gela Randle MD [Physician] - See Instructions (Follow-up MD in 2 weeks) Ventura Crockett MD [Physician] - See Instructions (Follow-up MD in 2 weeks) Gabi Mosquera MD [Primary Care Provider] - See Instructions (Follow-up PCP in 1 week) Post Discharge Care Plan Care Plan Goals: Your Health Problems: Goals to Promote Your Health: * To prevent worsening of your condition * To maintain your health at the optimal level Directions to Meet Your Goals: * Take your medications as prescribed * Follow your dietary instruction * Follow activity as directed * Keep your appointments as scheduled * Take your immunizations and boosters as scheduled * If your symptoms worsen call your PCP * If no PCP go to Urgent Care or Emergency Room Smoking is dangerous to your health. Avoid second hand smoke. You may reach the 24-hour crisis hotline for domestic abuse at . Status ED Status: Left Department Discharge Information Discharge Date/Time: 04/25/18 16:56
== END 2018-04-25 16:56 | DRG 83 ==
LOC: PHED 20:57 → PHEDA 23:12 → N03 04-23 01:12 → N05 04-24 03:43
PROVIDERS: ADMIT Internal Medicine; ATTEND Internal Medicine
DX: I10 Essential (primary) hypertension; Y90.6 Blood alcohol level of 120-199 mg/100 ml; R40.2412 Glasgow coma scale score 13-15, at arrival to emergency department; Z87.891 Personal history of nicotine dependence; S00.12XA Contusion of left eyelid and periocular area, initial encounter; S42.295A Other nondisplaced fracture of upper end of left humerus, initial encounter for closed fracture; W19.XXXA Unspecified fall, initial encounter; I95.9 Hypotension, unspecified; R45.87 Impulsiveness; S06.5X9A Traumatic subdural hemorrhage with loss of consciousness of unspecified duration, initial encounter; E78.5 Hyperlipidemia, unspecified; E78.00 Pure hypercholesterolemia, unspecified; I34.0 Nonrheumatic mitral (valve) insufficiency; E86.1 Hypovolemia; Z79.82 Long term (current) use of aspirin; Y92.009 Unspecified place in unspecified non-institutional (private) residence as the place of occurrence of the external cause; F10.129 Alcohol abuse with intoxication, unspecified
CPT/HCPCS: 70450; 72125; 73030; 73060; 73090; 80048; 80053; 80307; 83690; 83735; 84100; 85025; 85610; 85730; 86850; 86900; 86901; 87641; 90761; 90774; 93005; 96361; 96374; 97162; 99291; C8952; J1953; J2270; J3010; J3411; J7030